=== PATIENT | female | born 1935 | race Caucasian/White ===

== ENCOUNTER 2021-07-07 09:53 | Inpatient (IN) | payer MEDICARE, SELFPAY ==
--- NOTE | ~2021-07-07 | CT_ITS ---
EXAMINATION: CT CHEST WITHOUT CONTRAST CLINICAL INFORMATION: Fall. Right-sided rib pain. COMPARISON: None TECHNIQUE: Multidetector volumetric CT imaging of the chest was done. Axial MIP volume rendering provided. Sagittal and coronal reformatted images were obtained. This CT examination was performed using dose optimization techniques as appropriate, variously including the following: *Automated exposure control *Adjustment of mA and/or kV according to patient size (this includes techniques or standardized protocols for targeted exams where dose is matched to indication/reason for exam; i.e. extremities or head) *Use of iterative reconstruction technique DLP: 185 mGy-cm FINDINGS: LUNGS: There are multiple small bilateral pulmonary nodules or micronodules, right greater than left. Largest pulmonary nodule is a 4 mm heterogeneous or semisolid right upper lobe nodule axial image 133 series 5. There are clustered peribronchial nodules and bronchial wall thickening in the medial segment of the right middle lobe suggestive of tree-in-bud appearance or airways disease. There is subsegmental atelectasis at both lung bases. MEDIASTINUM: There is a 1 cm left thyroid nodule. No imaging follow-up needed. There is evidence of atherosclerotic disease. The thoracic aorta is upper normal in size. The heart does not appear enlarged. There is a trace pericardial effusion or pericardial thickening. There is coronary artery and aortic valve calcification. PLEURA: There is no pleural effusion. No pleural mass or thickening. There is no pneumothorax. AXILLA: No lymphadenopathy. UPPER ABDOMEN: There is free intraperitoneal air. There may be increased soft tissue or fluid seen inferior to the left lobe of the liver on the most inferior images axial image 65 series 3. OSSEOUS STRUCTURES: There are degenerative changes of the spine. No fracture is seen. CT/CT chest wo con IMPRESSION: No evidence for acute disease in the chest. Free air. Small amount of fluid or abnormal soft tissue inferior to the left lobe of the liver. Abdominal and pelvic CT is pending. Small pulmonary nodules or micronodules. Coronary artery and aortic valve calcification. Upper normal-sized thoracic aorta. Findings were communicated to Dr. Alicea by telephone on 07/07/2021 at 11:00 AM.
--- NOTE | ~2021-07-07 | FL_ITS ---
EXAMINATION: XR GI SERIES CLINICAL INFORMATION: Free air. Possible perforated ulcer. COMPARISON: Previous CT of the chest, abdomen and pelvis from earlier the same day TECHNIQUE: The patient was administered oral Gastrografin and single contrast upper GI was performed with the patient upright, supine and in the SALAZAR position. FINDINGS: There is free intraperitoneal air. There is a small air collection seen adjacent to the distal stomach/antrum. No contrast extravasation/leak is seen. There is no evidence of obstruction. FLUOROSCOPY TIME: 1.3 minutes DOSE AREA PRODUCT: 14 bergeron per centimeter squared. 19 saved fluoroscopic images and 3 overhead images. FL/FL upper GI series IMPRESSION: Free intraperitoneal air and small air collection adjacent to the distal stomach. No leak is seen. Findings were discussed with Dr. Lester in person on 07/07/2021 at 2:00 PM at the completion of the exam.
--- NOTE | ~2021-07-07 | CT_ITS ---
EXAMINATION: CT ABDOMEN AND PELVIS WITHOUT CONTRAST CLINICAL INFORMATION: COMPARISON: Chest CT from earlier today TECHNIQUE: Multidetector volumetric imaging was performed from the superior aspect of the liver through the pubic symphysis. Sagittal and coronal reformatted images were obtained on the technologist's workstation. This CT examination was performed using dose optimization techniques as appropriate, variously including the following: *Automated exposure control *Adjustment of mA and/or kV according to patient size (this includes techniques or standardized protocols for targeted exams where dose is matched to indication/reason for exam; i.e. extremities or head) *Use of iterative reconstruction technique DLP: 400 mGy-cm FINDINGS: LUNG BASES: The visualized lung bases are unremarkable. LIVER, GALLBLADDER, AND BILIARY TREE: The liver is normal in size, shape, and attenuation. No focal hepatic lesion or biliary ductal dilatation is present. The gallbladder is unremarkable with no evidence of radiopaque gallstones, gallbladder wall thickening, or obvious pericholecystic inflammatory changes. PANCREAS: Unremarkable. SPLEEN: Unremarkable. ADRENAL GLANDS: Unremarkable. KIDNEYS AND URETERS: The kidneys are normal in size, shape, and attenuation. No hydronephrosis, hydroureter, or calculi seen. No perinephric stranding. BLADDER: Unremarkable. GASTROINTESTINAL TRACT: There is free air seen under both diaphragms and in the upper anterior abdomen.. There is a small amount of ascites seen inferior to the left lobe of the liver. There are fluid-filled loops of small bowel. The cecum and proximal right colon is slightly distended and fluid-filled as well. There is stool in the colon. There is question of air in the wall of the anterior distal stomach/gastric antrum axial image 24 series 3. The wall of the distal stomach is slightly dilated. This is adjacent to the small fluid collection inferior to the left lobe of the liver and may be the site of perforation. The appendix is not seen. ABDOMINAL WALL: No significant hernia is appreciated. LYMPH NODES: Normal. VASCULAR: There is evidence of atherosclerotic disease PELVIC VISCERA: There is a calcification in the uterus probably representing a small calcified fibroid. No pelvic mass is OSSEOUS STRUCTURES: There are degenerative changes of the spine. There is mild anterior subluxation of L4 with respect L5 probably related to facet arthritis. There is arthritis at both hip joints. No fracture is seen. CT/CT abdomen pelvis wo con IMPRESSION: Free air. Small amount of fluid inferior to the left lobe of the liver. Question wall thickening and small amount of air in the distal stomach/antrum. This is adjacent to the fluid inferior to the left lobe of the liver and questionable for site of perforation. Fluid-filled loops of small and proximal large bowel probably representing an ileus. Stool throughout the colon. Degenerative changes of the spine. No fracture seen. Findings will be communicated by the [place] work flow parole director Susan Pearce.
--- NOTE | ~2021-07-07 | CT_ITS ---
EXAMINATION: CT abdomen pelvis w con CLINICAL INFORMATION: Reason for Exam reassess free air, presumed perforated ulcer, ? abscess COMPARISON: Prior CT 07/07/2021 TECHNIQUE: Multidetector volumetric imaging was performed from the superior aspect of the liver through the pubic symphysis 85 mL Omnipaque 350 injected Sagittal and coronal reformatted images were obtained on the technologist's workstation. This CT examination was performed using dose optimization techniques as appropriate, variously including the following: *Automated exposure control *Adjustment of mA and/or kV according to patient size (this includes techniques or standardized protocols for targeted exams where dose is matched to indication/reason for exam; i.e. extremities or head) *Use of iterative reconstruction technique DLP: 461 mGy-cm FINDINGS: LOWER THORAX: Small right pleural effusion and compression atelectasis at right lung base. HEPATOBILIARY: There is intra-articular extrahepatic biliary dilatation. Common bile duct measure up to 1 cm. GALLBLADDER: Not well visualized might be contracted or been removed. SPLEEN: Spleen is normal in size. PANCREAS: No focal mass or ductal dilatation. STOMACH AND GASTROINTESTINAL TRACT: Stomach is grossly unremarkable. There is contrast in the colon from prior upper GI study. No CT evidence of appendicitis. ADRENALS: No adrenal nodules. KIDNEYS/URETERS: No hydronephrosis, stones or solid mass lesions. URINARY BLADDER: Urinary bladder is distended unopacified. PELVIC VISCERA: Unremarkable PERITONEUM: There is a collection of fluid in the right upper quadrant with air abutting the left lobe of the liver measures about 4.7 x 2.1 cm there is a trace amount of free fluid along the gutters. Cannot rule out the possibility of evolving abscess, this is of uncertain origin. Sullivan image. This has increased in size. There are free air in the abdomen, raising concern for bowel perforation. LYMPH NODES: No lymphadenopathy. VASCULAR:There are heavy vascular calcifications. No aneurysm. BONES, ABDOMINAL WALL AND SOFT TISSUES: Age-appropriate changes of the spine and skeletal system, no destructive osteolytic or osteosclerotic bone lesion found CT/CT abdomen pelvis w con IMPRESSION: 1. Redemonstration of free air in the abdomen, as previously suggested this is concerning for perforated bowel. 2. Loculated fluid collection right upper quadrant abutting the left lobe of the liver slightly more prominent on today's exam concerning for developing abscess. Refer image 13 series 5. 3. Dilated intra and extrahepatic bile ducts, gallbladder not visualized might be contracted. 4. Small right pleural effusion with adjacent atelectasis at right lung base. (Referring physician staff is being called, to be alerted of the above findings and recommendations.) Ronnie Pagan
--- NOTE | ~2021-07-07 | CT_ITS ---
PROCEDURE: CT GUIDED ABSCESS DRAINAGE CLINICAL INFORMATION: Right upper quadrant abscess. Question perforated ulcer. COMPARISON: Previous CT scan most recent 07/09/2021 TECHNIQUE: Procedure and risks and benefits including bleeding, infection and injury to the adjacent organs or bowel was discussed with the patient and informed consent was obtained. The patient was positioned in the supine position. Limited axial images through the upper abdomen were obtained. The right upper quadrant was prepped and draped in the usual sterile fashion. The skin and soft tissues were anesthetized with 1% lidocaine plain. Using CT guidance and a 4 [place] Yueh needle, access to the fluid collection adjacent to the left lobe of the liver was obtained. Over an 035 guidewire, a 6.3 [place]an pigtail drainage catheter was positioned in the collection. Approximately 7 mL of clear slightly serosanguineous fluid was aspirated. Specimen was sent for Gram stain and culture. Patient received Versed 1.5 mg and fentanyl 50 mcg intravenously during the procedure. Conscious sedation was provided by a registered nurse under my direct supervision. Total sedation time was [address] examination was performed using dose optimization techniques as appropriate, variously including the following: *Automated exposure control *Adjustment of mA and/or kV according to patient size (this includes techniques or standardized protocols for targeted exams where dose is matched to indication/reason for exam; i.e. extremities or head) *Use of iterative reconstruction technique DLP: 153 mGy-cm FINDINGS: There is a small right pleural effusion and right lower lobe atelectasis. There is free air. There is a fluid collection just deep to the right upper anterior abdominal wall adjacent to the left lobe liver the small amount of air. This measures maximum 3 x 5 cm in AP and transverse dimension. There is air adjacent to the anterior distal stomach questionable for source of perforation. No extravasated oral contrast is seen. Findings are similar yesterday's exam. Images following drain placement demonstrate drainage catheter in the collection which is minimally decreased in size. CT/CT guided drainage IMPRESSION: CT-guided 6.3 Ug[place]an right upper quadrant drainage catheter placement.
[2021-07-07 10:01] VITALS: BP 117/66; PULSE 102; RESP 16; TEMP 36.3; O2SAT 97; BMI 20.5
--- NOTE | 2021-07-07 10:24 | ED.FALL ---
HPI - Fall General Chief Complaint: Fall Stated Complaint: fall - rib pain radiating to abd Time Seen by Provider: 07/07/21 10:10 Source: patient Mode of arrival: ambulatory Limitations: no limitations History of Present Illness complaint: fall Onset (ago): day(s) (5) Fall from: chair (while standing) Fall witnessed: no Place fall occurred: home Loss of consciousness: none Prolonged down time: no Symptoms prior to fall: none Context: tripped/slipped Location of injury: chest (R side ) Location of injury - extremities: right: thigh Quality: dull and aching Associated symptoms (after fall): other (worsening R rib pain , hematoma on R thigh is improving) Related Data Home Medications Medication Instructions Recorded Confirmed bromfenac 0.09 % eye drops 1 drp OPHTHALMIC-RIGHT DAILY 06/01/21 simvastatin 10 mg tablet 10 mg PO BEDTIME 06/01/21 valsartan 320 mg tablet 320 mg PO DAILY 06/01/21 valsartan 320 1 tab PO DAILY 06/01/21 mg-hydrochlorothiazide 12.5 mg tablet Previous Rx's Medication Instructions Recorded nystatin 100,000 unit/mL oral 2 ml PO QID 7 Days #56 ml 06/01/21 suspension Allergies Allergy/AdvReac Type Severity Reaction Status Date / Time No Known Allergies Allergy Verified 06/09/21 11:29 Review of Systems Review of Systems: Constitutional : No Weight loss, No Fever, No Chills ENT/Mouth : No sore throat, No Rhinorrhea Eyes: No Eye Pain, No Swelling Cardiovascular : pos Chest Pain, no SOB, no Dyspnea on Exertion, No Orthopnea, No Edema, No Palpitations Respiratory : No Cough, No Sputum Gastrointestinal : no Nausea, No Vomiting, No Diarrhea, pos abdominal Pain, No Hematochezia, No Melena Genitourinary : No Dysuria, No Urinary Frequency Musculoskeletal : No joint pain, No Myalgias, No Joint Swelling Skin : No Skin Lesions, No rash Neuro : No Weakness, No Numbness, No Dizziness, No Headache Psych : No Anxiety/Panic, No Depression Heme/Lymph: No Bruising, No Lymphadenopathy Endocrine : No Polyuria, No Polydipsia All other systems reviewed and are negative PMFSH Past Medical History Attestation statement: The following information was validated with the patient. Medical History High cholesterol HTN (hypertension) Social History Social History (Updated 07/07/21 @ 10:44 by Xin Alicea DO) Patient Tobacco Use Status: Never used Tobacco Advance Directives: No Advance Directives Information Provided: No Physical Exam Vital Signs: Vital Signs: Last Vital Signs Temp 97.3 F 07/07/21 10:01 Pulse 102 H 07/07/21 10:01 Resp 16 07/07/21 10:01 BP 117/66 07/07/21 10:01 Pulse Ox 97 07/07/21 10:01 Body Mass Index 20.5 Appearance: Alert. Oriented X3. No acute distress. Eyes: Pupils equal, round and reactive to light. ENT: Pharynx normal. Neck: Normal inspection. Neck supple. CVS: Normal heart rate and rhythm. Pulses normal. Chest: ttp along R anterior ribs Respiratory: No respiratory distress. Breath sounds normal. Abdomen: Soft and mild RUQ pain no rebound or guarding Skin: Skin warm and dry. Normal skin color. Normal skin turgor. Extremities: No lower extremity edema. No calf ttp . R thigh resolving small hematoma to R hip full ROM Of R hip Neuro: Oriented X 3. No motor deficit. No sensory deficit. Course Course Course Narrative: H/H stable, on repeat exam no rebound or guarding noted, denies any new procedures just states the recent fall labs, will scan with IV contrast if needed, type and screen, COVID swab ordered, patient updated with findings call from Radiology [id number] - gastric ulcer ?perforation free air noted no liver lac noted message sent to Dr. Lester [id number] lab, cultures, IV protonix ordered, anticipate zosyn pending input zosyn ordered, Dr. Lester to admit upper GI series ordered MDM - Fall MDM Narrative Medical decision making narrative: 86 yo female with hx of HLD, HTN mechanical fall on Saturday at home did not hit head or injure neck - not on AC therapy. Complains of worsening R chest and RUQ pain since fall - will obtain labs and CT scan of chest/abdomen. R thigh is healing and she has full ROM of R hip doubt fracture. Dispo per results and findings. Lab Data Result diagrams: 07/07/21 10:56 07/07/21 10:56 Labs: Lab Results 07/07/21 07/07/21 07/07/21 Range/Units 10:56 10:56 11:16 WBC 10.1 (4.8-10.8) X10*3/uL RBC 4.19 L (4.20-5.50) X10*6/uL Hgb 12.7 (12.0-16.0) g/dl Hct 37.9 (37-47) % MCV 90.5 (80-98) fL MCH 30.3 (27.0-33.0) pg MCHC 33.5 (31.0-35.0) g/dl RDW 13.9 (11.0-16.0) % Plt Count 288 (160-400) X10*3/uL MPV 8.6 L (9.4-12.3) fL Immature Gran % (Auto) 0.5 H (0.0-0.4) % Neut % (Auto) 89.0 H (45-73) % Lymph % (Auto) 5.0 L (20-40) % Florence % (Auto) 4.0 (2-11) % Eos % (Auto) 1.2 (0-4) % Baso % (Auto) 0.3 (0-2) % Lymph # (Auto) 0.5 L (1.2-4.9) X10*3/uL Florence # (Auto) 0.4 (0.1-1.2) X10*3/uL Eos # (Auto) 0.1 (0.0-0.4) X10*3/uL Baso # (Auto) 0.0 (0.0-0.2) X10*3/uL Abs Immat Gran (auto) 0.05 H (0.00-0.03) X10*3/uL Absolute Neuts (auto) 9.0 H (2.0-8.3) X10*3/uL Absolute Nucleated RBC 0.000 (0.0-0.012) X10*3/uL Nucleated RBC % (auto) 0.0 (0.0-0.2) /100WBC PT 13.1 H (9.9-13.0) SEC INR 1.2 H (0.9-1.1) APTT 30.8 (24.1-38.0) SEC Sodium 134 L (135-145) mmol/L Potassium 4.0 (3.3-5.1) mmol/L Chloride 102 (96-108) mmol/L Carbon Dioxide 22 (22-29) mmol/L Anion Gap 14 (12-20) BUN 23 H (9-16) mg/dL Creatinine 1.16 (0.5-1.4) mg/dL Estim Creat Clear Calc 30.9 Estimated GFR 45 Random Glucose 114 (60-115) mg/dL Lactic Acid (0.5-2.0) mmol/L Calcium 9.4 (8.4-10.2) mg/dL Total Bilirubin 1.3 H (0.0-1.0) mg/dL Direct Bilirubin 0.6 H (0.0-0.5) mg/dL AST 12 (5-31) U/L ALT 15 (0-31) U/L Alkaline Phosphatase 69 (39-117) U/L Total Protein 6.1 L (6.5-8.0) g/dL Albumin 3.7 (3.5-5.0) g/dL Lipase 11 (8-78) U/L COVID-19 ([facility]) (Negative) COVID-19 Clin Com Blood Type 07/07/21 07/07/21 07/07/21 Range/Units 11:16 11:16 11:40 WBC (4.8-10.8) X10*3/uL RBC (4.20-5.50) X10*6/uL Hgb (12.0-16.0) g/dl Hct (37-47) % MCV (80-98) fL MCH (27.0-33.0) pg MCHC (31.0-35.0) g/dl RDW (11.0-16.0) % Plt Count (160-400) X10*3/uL MPV (9.4-12.3) fL Immature Gran % (Auto) (0.0-0.4) % Neut % (Auto) (45-73) % Lymph % (Auto) (20-40) % Florence % (Auto) (2-11) % Eos % (Auto) (0-4) % Baso % (Auto) (0-2) % Lymph # (Auto) (1.2-4.9) X10*3/uL Florence # (Auto) (0.1-1.2) X10*3/uL Eos # (Auto) (0.0-0.4) X10*3/uL Baso # (Auto) (0.0-0.2) X10*3/uL Abs Immat Gran (auto) (0.00-0.03) X10*3/uL Absolute Neuts (auto) (2.0-8.3) X10*3/uL Absolute Nucleated RBC (0.0-0.012) X10*3/uL Nucleated RBC % (auto) (0.0-0.2) /100WBC PT (9.9-13.0) SEC INR (0.9-1.1) APTT (24.1-38.0) SEC Sodium (135-145) mmol/L Potassium (3.3-5.1) mmol/L Chloride (96-108) mmol/L Carbon Dioxide (22-29) mmol/L Anion Gap (12-20) BUN (9-16) mg/dL Creatinine (0.5-1.4) mg/dL Estim Creat Clear Calc Estimated GFR Random Glucose (60-115) mg/dL Lactic Acid 0.9 (0.5-2.0) mmol/L Calcium (8.4-10.2) mg/dL Total Bilirubin (0.0-1.0) mg/dL Direct Bilirubin (0.0-0.5) mg/dL AST (5-31) U/L ALT (0-31) U/L Alkaline Phosphatase (39-117) U/L Total Protein (6.5-8.0) g/dL Albumin (3.5-5.0) g/dL Lipase (8-78) U/L COVID-19 ([facility]) Negative (Negative) COVID-19 Clin Com See Note Blood Type O Positive Discharge Plan Discharge Clinical Impression: Perforated gastric ulcer Patient Disposition: Admitted As Inpatient Prescriptions: No Action valsartan-hydrochlorothiazide 320-12.5 mg tablet 1 tab PO DAILY RF: 0 simvastatin 10 mg tablet 10 mg PO BEDTIME RF: 0 valsartan 320 mg tablet 320 mg PO DAILY RF: 0 bromfenac 0.09 % drops 1 drp ophthalmic-Right DAILY RF: 0 nystatin 100,000 unit/mL suspension 2 ml PO QID 7 Days Qty: 56 RF: 0
--- NOTE | 2021-07-07 10:45 | PC.NURSE ---
pt alert and oriented, vss. Pt states she fell on Saturday and on Saturday she started having RUQ and Right sided chest pain. She denies LOC/hitting her head. Pt denies dizziness/headache/sob/nausea/vomiting/diarrhea. no other symptoms reported. She states the pain has gotten worse since the day of the fall and is concerned. IV placed in her right forearm, labs drawn. pt in no apparent distress.
[2021-07-07 10:59] LABS: MANUAL DIFF FLAG NO
[2021-07-07 11:07] LABS: Basophils Percent Auto 0.3 % (0-2); Eosinophils Absolute Auto 0.1 X10*3/uL (0.0-0.4); Eosinophils Percent Auto 1.2 % (0-4); Hematocrit 37.9 % (37-47); Hemoglobin 12.7 g/dl (12.0-16.0); Imm Gran Abs Auto 0.05 X10*3/uL (0.00-0.03); Imm Gran Pct Auto 0.5 % (0.0-0.4); Lymphocytes Absolute Auto 0.5 X10*3/uL (1.2-4.9); Mean Corpuscular HGB Conc 33.5 g/dl (31.0-35.0); Mean Corpuscular Hemoglobin 30.3 pg (27.0-33.0); Mean Corpuscular Volume 90.5 fL (80-98); Mean Platelet Volume 8.6 fL (9.4-12.3); Monocytes Absolute Auto 0.4 X10*3/uL (0.1-1.2); Platelet Count 288 X10*3/uL (160-400); Red Blood Count 4.19 X10*6/uL (4.20-5.50); Red Cell Distribution Width 13.9 % (11.0-16.0); White Blood Count 10.1 X10*3/uL (4.8-10.8)
[2021-07-07 11:26] LABS: Alanine Aminotransferase 15 U/L (0-31); Albumin Level 3.7 g/dL (3.5-5.0); Alkaline Phosphatase 69 U/L (39-117); Anion Gap 14 (12-20); Aspartate Amino Transferase 12 U/L (5-31); Bilirubin Direct 0.6 mg/dL (0.0-0.5); Bilirubin Total 1.3 mg/dL (0.0-1.0); Blood Urea Nitrogen 23 mg/dL (9-16); Calcium 9.4 mg/dL (8.4-10.2); Carbon Dioxide 22 mmol/L (22-29); Chloride 102 mmol/L (96-108); Creatinine Clr Calc Pharmacy 30.9; Estimated Glomerular Filt Rate 45; Glucose Random 114 mg/dL (60-115); Lipase 11 U/L (8-78); Sodium 134 mmol/L (135-145); Total Protein 6.1 g/dL (6.5-8.0)
[2021-07-07 11:30] LABS: INTERNATIONAL NORM RATIO 1.2 (0.9-1.1); Prothrombin Time 13.1 SEC (9.9-13.0)
[2021-07-07 11:32] LABS: Partial Thromboplastin Time 30.8 SEC (24.1-38.0)
[2021-07-07 11:44] LABS: COVID-19 Test Negative (Negative); IDNOW Serial# 08D9AD1C
[2021-07-07] MEDS: Pantoprazole Sodium 40 MG/10 ML VIAL IVPUSH ×2 (11:44→18:12)
[2021-07-07 12:00] LABS: Lactic Acid 0.9 mmol/L (0.5-2.0)
--- NOTE | 2021-07-07 12:25 | P.HPGS_ITS ---
History of Present Illness History of Present Illness Date of Service: 07/07/21 Chief complaint: fall - rib pain radiating to abd Narrative: Justyna Browning is a 86 year old female who was feeling well until 2 nights ago. She was away on a trip and was standing in line to get supper when she experienced acute onset of severe epigastric pain that radiated to both subcostal areas. It was not associated with nausea vomiting fever or chills. The pain improved but has not resolved. She has experienced persistent right upper quadrant and right lower quadrant abdominal pain and tenderness. Appetite is diminished. She has been able to take fluids and some solids. She has not used any nonsteroidal medications or aspirin. She does not drink any significant amount of alcohol or smoke cigarettes. She does not have a history of abdominal pain or peptic ulcer disease. She had a normal bowel movement yesterday. When she was preparing to leave on her trip 4 days ago, she was reaching up to get something off of a high shelf and lost her balance. She fell and landed on her right hip area. She developed a bruise, but did not have significant pain and was able to get right back up and continue packing. When she developed the epigastric pain, she thought it likely was related to the fall that she had taken 2 days earlier. She returned home last night and this morning called her primary care office to arrange an urgent visit appointment. The nurse that the primary care office advised her that imaging studies likely would be needed and suggested coming to the emergency department. In the emergency department, CT scan of the chest, abdomen and pelvis was obtained. This demonstrated free intraperitoneal air and some free fluid, particularly around the proximal right colon. A site of possible perforation was identified in the distal stomach. White blood count is 10.1 with 89% neutrophils. BUN is 23 and creatinine 1.13. Sodium is slightly low at 134. Review of Systems Constitutional: Constitutional: Reports no additional constitutional complaints, Denies chills, Denies fever(s), Denies frequent falls, Denies headache(s), Reports poor appetite (Slightly diminished, predates current symptoms) and Reports weight loss (Mild, unable to quantify) Eyes: Eyes: Denies dry eyes and Reports requires corrective lenses ENT: Denies dizziness and Denies headache(s) Cardiovascular: Cardiovascular: Denies chest pain, Denies irregular heart rhythm, Denies palpitations and Denies dyspnea on exertion Respiratory: Respiratory: Denies cough, Denies dyspnea on exertion and Denies wheezing Gastrointestinal: Gastrointestinal: Reports as per HPI, Reports abdominal pain, Denies change in bowel habits, Denies heartburn and Denies nausea Genitourinary: Genitourinary: Denies urinary frequency, Denies dysuria and Denies pelvic pain Musculoskeletal: Musculoskeletal: Reports back pain and Reports arthralgias (Both knees) Integumentary/Breasts: Skin/Breast: Denies pruritus and Denies rash Neurologic: Denies dizziness, Denies frequent falls, Denies headache(s), Denies memory loss and Denies convulsions Psychiatric: Psychiatric: Denies memory loss Endocrine: Endocrine: Denies palpitations Hematologic/Lymphatic: Hematologic/Lymphatic: Denies easy bleeding and Reports other (No history of blood clots) Allergic/Immunologic: Allergic/Immunologic: Denies wheezing PMFSH Past Medical History Medical History (Updated 07/07/21 @ 12:42 by Aditi Lester MD) High cholesterol HTN (hypertension) Osteoarthritis of both knees Sciatica Functional capacity: independent ambulation Surgical History Surgical History (Updated 07/07/21 @ 12:42 by Aditi Lester MD) History of appendectomy History of back surgery History of cholecystectomy History of tonsillectomy Social History Social History Patient Tobacco Use Status: Never used Tobacco Advance Directives: No Advance Directives Information Provided: No Meds Allergies Allergy/AdvReac Type Severity Reaction Status Date / Time No Known Allergies Allergy Verified 06/09/21 11:29 Active Medications: Current Medications Piperacillin Sod/Tazobactam (Sod 3.375 gm/ Sodium Chloride) 50 mls @ 100 mls/hr IV ONCE ONE Stop: 07/07/21 12:36 Home Medications Medication Instructions Recorded Confirmed Last Taken Type bromfenac 0.09 % eye drops 1 drp OPHTHALMIC-RIGHT DAILY 06/01/21 Unknown History simvastatin 10 mg tablet 10 mg PO BEDTIME 06/01/21 Unknown History valsartan 320 mg tablet 320 mg PO DAILY 06/01/21 Unknown History valsartan 320 1 tab PO DAILY 06/01/21 Unknown History mg-hydrochlorothiazide 12.5 mg tablet Physical Exam Vital Signs: Vital Signs: Last Vital Signs Temp 97.3 F 07/07/21 10:01 Pulse 102 H 07/07/21 10:01 Resp 16 07/07/21 10:01 BP 117/66 07/07/21 10:01 Pulse Ox 97 07/07/21 10:01 Body Mass Index 20.5 Const: General: cooperative, healthy appearing and no acute distress Nutritional Appearance: thin Orientation/consciousness: patient oriented x3 HENMT: Head: Yes normocephalic and Yes atraumatic Eyes: General: appearance normal, both eyes and all related structures EOM: EOMs intact bilaterally Neck: Neck: Yes trachea midline and Yes supple Resp: Effort & Inspection: normal respiratory effort Auscultation: clear to auscultation bilaterally Cardio: Rate: regular rate Rhythm: regular rhythm Heart sounds: no murmurs GI: Other: Soft, nondistended, bowel sounds active, no organomegaly, well- healed right subcostal and right lower quadrant incisions. Moderate right lower quadrant tenderness on marked right upper quadrant tenderness with rebound Rectal Exam - Female: deferred Skin: Other: Normal color, warm and dry General skin exam: no rashes or lesions noted and ecchymosis (Region of right greater trochanter) Neuro: General: patient oriented x3 Psych: Mental Status: mental status grossly normal Affect: normal affect Thought process: Normal thought process present Results Results Labs: Short CBC 07/07/21 Range/Units 10:56 WBC 10.1 (4.8-10.8) X10*3/uL Hgb 12.7 (12.0-16.0) g/dl Hct 37.9 (37-47) % Plt Count 288 (160-400) X10*3/uL BMP 07/07/21 10:56 Sodium 134 L Potassium 4.0 Chloride 102 Carbon Dioxide 22 BUN 23 H Creatinine 1.16 Calcium 9.4 Liver Function 07/07/21 Range/Units 10:56 Total Bilirubin 1.3 H (0.0-1.0) mg/dL Direct Bilirubin 0.6 H (0.0-0.5) mg/dL AST 12 (5-31) U/L ALT 15 (0-31) U/L Alkaline Phosphatase 69 (39-117) U/L Albumin 3.7 (3.5-5.0) g/dL Abdomen CT scan report/results: report reviewed and image reviewed (With Dr. Graham) CT scan - chest: report reviewed and image reviewed Assessment and Plan (1) Perforated gastric ulcer: Qualifiers: Gastric ulcer chronicity: unspecified ulcer chronicity Qualified Code(s): K25.5 - Chronic or unspecified gastric ulcer with perforation Status: Acute 86-year-old female with perforated viscus, most likely perforated distal gastric/peptic ulcer. The perforation probably occurred 2 days ago based upon the reported timing of symptom onset. We discussed treatment options. I reviewed with her at that her delayed presentation is somewhat unusual. We discussed the likely diagnosis of perforated gastric/peptic ulcer, but I expla ined that another site of perforation is possible. We discussed that the typical treatment would be exploratory laparotomy with over-sewing of the ulcer and placement of omental patch and presuming that to the diagnosis of perforated ulcer is confirmed. The abdomen would be explored as needed to identify the source if an ulcer was not found. We reviewed risks of infection, bleeding, breakdown of the repair. We also discussed the option of non operative treatment if it appears that the perforation has sealed spontaneously. We discussed evaluation with Gastrografin upper GI. We discussed if no ongoing leakage is identified, a trial of antibiotic therapy and bowel rest can be undertaken. We discussed risks of abdominal abscess formation and recurrence of the perforation necessitating s urgery. We also discussed the risk of aspiration pneumonitis related to the use of water-soluble contrast material should the upper GI confirm perforation with ongoing leak with a short time between diagnosis and surgical treatment. Her preference is to proceed with non operative treatment if it appears to be a reasonable choice. We will proceed with upper GI with water-soluble contrast material. Further plans will be made once that study has been completed. Addendum: Gastrografin upper GI does not show any evidence of contrast leak. Possible site of ulceration identified, but cannot be diagnosed with certainty. Clinical history and imaging findings are most consistent with a perforated peptic ulcer with spontaneous sealing. I reviewed the findings with Dr. Graham and then with the patient. We again discussed treatment options. She prefers non operative treatment, and I agreed this is reasonable. She is aware that it may not be successful and that there is a risk of development of intra-abdominal abscess secondary to spillage of GI content and that it is possible that this could be successfully treated with antibiotics and percutaneous drainage as needed. She understands that surgery will be needed if non operative treatment is not successful. She will be admitted and kept NPO initially. She will be placed on IV Protonix, Zosyn and IV fluids. She remains stable, clear liquid diet will be initiated tomorrow and will be advanced as tolerated. CT scan will be repeated in 2-3 days to reassess for development of intra-abdominal abscess. VT prophylaxis will be with subcutaneous heparin. Will follow blood pressure, resume antihypertensives as needed. Quality Stroke Does the patient have a stroke diagnosis?: No VTE Prior VTE?: No VTE Risk Level:: Surgical - high VTE Device Contraindication: Treatment Not Indicated VTE Drug Contraindication: N/A - Med Ordered Procedures Date of Service Date of Service: 07/07/21
[2021-07-07] MEDS: Piperacillin Sodium/Tazobactam 3.375 GM in 0.9 % Sodium Chloride 50 ML IV ×3 (12:52→23:30)
[2021-07-07 17:19] VITALS: BP 175/76; PULSE 78; RESP 18; TEMP 36.8; O2SAT 97
[2021-07-07] MEDS: Dextrose 5 % and Lactated Ring 1,000 ML 80 ML IVCONT (17:43)
--- NOTE | 2021-07-07 18:10 | PHA.MEDREC ---
Pharmacy Consult ? Medication Reconciliation Pharmacy has completed the medication reconciliation. Spoke with patient in room 375. Patient reports only taking Valsartan/HCTZ, probiotic when needed, and vitamin d during winter months. patient weaned on simvastatin because she was getting muscle cramps.
[2021-07-07] MEDS: Heparin Sodium,Porcine 5,000 UNIT/ML VIAL 5000 UNIT SUBCUT (18:12)
[2021-07-07 18:54] VITALS: BP 140/65; PULSE 88; RESP 18; TEMP 36.8; O2SAT 98
[2021-07-07] MEDS: Morphine Sulfate 4 MG/ML CARTRIDGE 2 MG IVPUSH (22:59)
[2021-07-07 23:01] VITALS: BP 140/66; PULSE 84; RESP 20
[2021-07-08] VITALS: BP 165/72; PULSE 89; RESP 20; TEMP 36.6; O2SAT 98
[2021-07-08 04:00] VITALS: BP 156/70; PULSE 80; RESP 19; TEMP 36.5; O2SAT 95
[2021-07-08] MEDS: Piperacillin Sodium/Tazobactam 3.375 GM in 0.9 % Sodium Chloride 50 ML IV ×3 (05:18→17:57)
[2021-07-08] MEDS: Heparin Sodium,Porcine 5,000 UNIT/ML VIAL 5000 UNIT SUBCUT ×2 (05:19→17:52)
[2021-07-08] MEDS: Dextrose 5 % and Lactated Ring 1,000 ML 80 ML IVCONT (05:22)
[2021-07-08 06:07] LABS: Hematocrit 31.8 % (37-47); Hemoglobin 10.9 g/dl (12.0-16.0); Mean Corpuscular HGB Conc 34.3 g/dl (31.0-35.0); Mean Corpuscular Hemoglobin 30.9 pg (27.0-33.0); Mean Corpuscular Volume 90.1 fL (80-98); Mean Platelet Volume 8.7 fL (9.4-12.3); Platelet Count 237 X10*3/uL (160-400); Red Blood Count 3.53 X10*6/uL (4.20-5.50); Red Cell Distribution Width 14.1 % (11.0-16.0); White Blood Count 7.7 X10*3/uL (4.8-10.8)
[2021-07-08 06:44] LABS: Alanine Aminotransferase 48 U/L (0-31); Alkaline Phosphatase 129 U/L (39-117); Anion Gap 11 (12-20); Aspartate Amino Transferase 58 U/L (5-31); Bilirubin Direct 0.4 mg/dL (0.0-0.5); Bilirubin Total 0.4 mg/dL (0.0-1.0); Blood Urea Nitrogen 19 mg/dL (9-16); Calcium 8.6 mg/dL (8.4-10.2); Carbon Dioxide 26 mmol/L (22-29); Chloride 104 mmol/L (96-108); Creatinine Clr Calc Pharmacy 36.6; Estimated Glomerular Filt Rate 54; Glucose Fasting 125 mg/dL (60-99); Potassium 3.7 mmol/L (3.3-5.1); Sodium 137 mmol/L (135-145); Total Protein 5.1 g/dL (6.5-8.0)
[2021-07-08 07:50] VITALS: BP 156/70; PULSE 81; RESP 20; TEMP 37; O2SAT 96
[2021-07-08] MEDS: Pantoprazole Sodium 40 MG/10 ML VIAL IVPUSH (09:25)
[2021-07-08] MEDS: hydroCHLOROthiazide 12.5 MG TABLET PO (09:25)
[2021-07-08] MEDS: Valsartan 320 MG TABLET PO (09:54)
[2021-07-08 11:56] VITALS: BP 161/72; PULSE 88; RESP 18; TEMP 36.4; O2SAT 98
[2021-07-08] MEDS: Pantoprazole Sodium 80 MG in 0.9 % Sodium Chloride 80 ML 10 MG IV (15:10)
[2021-07-08 15:50] VITALS: BP 171/74; PULSE 84; RESP 19; TEMP 36.9; O2SAT 99
--- NOTE | 2021-07-08 15:51 | MHC.CM.PN ---
CM MET WITH PT WHO REPORTS SHE HAS BEEN COMPLETELY INDEPENDENT [employer]. PT REPORTS SHE HAS NOT NEEDED ANY DME OR IN HOME SERVICES PT CONFIRMS HER PCP IS EMILE CLEMENTS BUT REPORTS SHE HAS NOT SEEN HER YET PT REPORTS SHE HAS A HCP NAMING HER TWO DAUGHTERS, KEVEN AND WILBERT, HER AGENTS. IMM DELIVERED PT HOPES TO [facility] WITH NO SERVICES ALTHOUGH SHE IS OPEN TO [facility] IF NECESSARY FAMILY TO TRANSPORT
--- NOTE | 2021-07-08 16:54 | PM.EVENT ---
Event Note Date of Service: 07/08/21 Event Note: GI Consult-Hx via patient, daughter, and EMR. Full note dictated. Imp: 86 yo female without prior GI history nor GI symptoms presenting with acute abdominal pain and probable perforation of a gastric ulcer based on imaging study. A F/U gastrograffin UGI was negative for any extravasation. Based on that and her good good clinical appearance the plan is for conservative medical management for the time being. She has no risk factors for PUD. She presently appears well and her abdominal exam is fairly benign other than right-sided tenderness. There is no mass, distention, nor rebound. She has good BS and has had a few BM's since admission. Rec: Continue IV PPI constant infusion. Check H.pylori serology. If surgery is avoided I would then recommend an EGD as an outpatient in 1-2 months. I shall leave the advancement of her diet and plans for further imaging and/or surgical intervention up to the surgical service. D/W patient and her daughter in detail. They are comfortable with this plan. Thanks.
[2021-07-08 19:02] VITALS: BP 174/79; PULSE 74; RESP 18; TEMP 36.6; O2SAT 96
[2021-07-08] MEDS: Morphine Sulfate 4 MG/ML CARTRIDGE 2 MG IVPUSH (19:55)
[2021-07-08] MEDS: Acetaminophen 325 MG TABLET 650 MG PO (23:55)
[2021-07-09] VITALS (7 sets, daily range): BP systolic 152–186; BP diastolic 69–81; PULSE 77–85; RESP 17–20; TEMP 36.2–37; O2SAT 96–99
[2021-07-09] MEDS: Piperacillin Sodium/Tazobactam 3.375 GM in 0.9 % Sodium Chloride 50 ML IV ×4 (00:47→17:28)
[2021-07-09] MEDS: Pantoprazole Sodium 80 MG in 0.9 % Sodium Chloride 80 ML 10 MG IV ×3 (01:30→17:30)
[2021-07-09] MEDS: Heparin Sodium,Porcine 5,000 UNIT/ML VIAL 5000 UNIT SUBCUT ×2 (05:47→17:29)
[2021-07-09 05:56] LABS: MANUAL DIFF FLAG NO
[2021-07-09 06:01] LABS: Basophils Percent Auto 0.4 % (0-2); Eosinophils Absolute Auto 0.2 X10*3/uL (0.0-0.4); Eosinophils Percent Auto 5.1 % (0-4); Hematocrit 30.8 % (37-47); Hemoglobin 10.5 g/dl (12.0-16.0); Imm Gran Abs Auto 0.02 X10*3/uL (0.00-0.03); Imm Gran Pct Auto 0.4 % (0.0-0.4); Lymphocytes Absolute Auto 0.7 X10*3/uL (1.2-4.9); Mean Corpuscular HGB Conc 34.1 g/dl (31.0-35.0); Mean Corpuscular Hemoglobin 30.6 pg (27.0-33.0); Mean Corpuscular Volume 89.8 fL (80-98); Mean Platelet Volume 8.7 fL (9.4-12.3); Monocytes Absolute Auto 0.3 X10*3/uL (0.1-1.2); Monocytes Percent Auto 5.9 % (2-11); Neutrophils Absolute Auto 3.5 X10*3/uL (2.0-8.3); Neutrophils Percent Auto 74.2 % (45-73); Platelet Count 223 X10*3/uL (160-400); Red Blood Count 3.43 X10*6/uL (4.20-5.50); Red Cell Distribution Width 13.8 % (11.0-16.0); White Blood Count 4.7 X10*3/uL (4.8-10.8)
--- NOTE | 2021-07-09 06:02 | PC.NURSE ---
Patient states she is feeling weaker and requested to ambulate yesterday but staff did not return.Patient asking to make sure she is helped to ambulate.
[2021-07-09] MEDS: Valsartan 320 MG TABLET PO (08:36)
[2021-07-09] MEDS: hydroCHLOROthiazide 12.5 MG TABLET PO (08:36)
[2021-07-09] MEDS: iohexoL 350 MG/ML 100 ML INFUS..BTL IV (12:09)
--- NOTE | 2021-07-09 12:12 | PM.PNGS ---
Subjective Subjective Date of Service: 07/09/21 Interval history: Was up ambulating without difficulty earlier. She reports ongoing difficulty with movement associated right subcostal pain, perhaps somewhat improved from previous. Tolerating clear liquid diet. Physical Exam Vital Signs: Vital Signs: Last Vital Signs Temp 98.6 F 07/09/21 07:37 Pulse 78 07/09/21 07:37 Resp 20 07/09/21 07:37 BP 164/75 H 07/09/21 07:37 Pulse Ox 96 07/09/21 07:37 Body Mass Index 20.5 Laboratory Results - last 24 hr 07/09/21 05:47 WBC 4.7 L RBC 3.43 L Hgb 10.5 L Hct 30.8 L MCV 89.8 MCH 30.6 MCHC 34.1 RDW 13.8 Plt Count 223 MPV 8.7 L Immature Gran % (A uto) 0.4 Neut % (Auto) 74.2 H Lymph % (Auto) 14.0 L [place] % (Auto) 5.9 Eos % (Auto) 5.1 H Baso % (Auto) 0.4 Lymph # (Auto) 0.7 L [place] # (Auto) 0.3 Eos # (Auto) 0.2 Baso # (Auto) 0.0 Abs Immat Gran (au to) 0.02 Absolute Neuts (au to) 3.5 Absolute Nucleated RBC 0.000 Nucleated RBC % (a uto) 0.0 Const: General: cooperative, no acute distress and alert Resp: Effort & Inspection: normal respiratory effort Auscultation: clear to auscultation bilaterally Cardio: Rate: regular rate Rhythm: regular rhythm Skin: Other: Normal color, warm and dry Procedures Date of Service Date of Service: 07/09/21 Progress Note: A&P Assessment and plan (1) Perforated gastric ulcer: Status: Acute Assessment and Plan: She appears stable and abdominal tenderness is improving gradually. She has significant persistent right upper quadrant tenderness in the region of the presumed perforation. Will repeat CT scan of the abdomen and pelvis today and will add IV contrast. If no evidence of recurrent leak, will advance to solid diet later today. Continue Zosyn, IV Protonix. (2) HTN (hypertension): Status: Acute Assessment and Plan: Chronic. Blood pressure has been somewhat elevated. May be related to acute illness and associated pain. Will continue to follow for now. Fall Risk Details Current Medications: Current Medications Acetaminophen (Acetaminophen 325 Mg Tablet) 650 mg PO Q6H PRN PRN Reason: Pain, Mild (Pain Scale 1-3) Last Admin: 07/08/21 23:55 Dose: 650 mg Documented by: Heparin Sodium (Porcine) (Heparin Sodium,Porcine 5,000 Unit/Ml Vial) 5,000 unit SUBCUT Q12H [facility] Last Admin: 07/09/21 05:47 Dose: 5,000 unit Documented by: Hydrochlorothiazide (Hydrochlorothiazide 12.5 Mg Tablet) 12.5 mg PO DAILY [facility]; Protocol Last Admin: 07/09/21 08:36 Dose: 12.5 mg Documented by: Dextrose/Lactated Ringer's (D5lr) 1,000 mls @ 80 mls/hr IVCONT .[id number] [facility] Last Admin: 07/09/21 07:29 Dose: Not Given Documented by: Piperacillin Sod/Tazobactam (Sod 3.375 gm/ Sodium Chloride) 50 mls @ 100 mls/hr IV Q6H [facility] Last Infusion: 07/09/21 06:38 Dose: Infused Documented by: Pantoprazole Sodium 80 mg/ (Sodium Chloride) 100 mls @ 10 mls/hr IV .Q10H [facility] Last Admin: 07/09/21 08:36 Dose: 8 mg/hr, 10 mls/hr Documented by: Morphine Sulfate (Morphine Sulfate 4 Mg/Ml Cartridge) 2 mg IVPUSH Q3H PRN; Protocol PRN Reason: Pain, severe Last Admin: 07/08/21 19:55 Dose: 2 mg Documented by: Ondansetron HCl (Ondansetron Hcl 4 Mg/2 Ml Vial) 4 mg IVPUSH Q8H PRN PRN Reason: Nausea Pharmacy Consult (Consult Rx Perform Med Rec) 1 each MISCELLANE ONCE PRN PRN Reason: Consult order Valsartan (Valsartan 320 Mg Tablet) 320 mg PO DAILY [facility]; Protocol Last Admin: 07/09/21 08:36 Dose: 320 mg Documented by: Time Spent With Patient Time: Total time spent is greater than 50% in coordination of care (as documented) at patient's floor/unit and/or counseling patient: Time with patient: less than 15 minutes Quality Stroke Does the patient have a stroke diagnosis?: No VTE Prior VTE?: No VTE Risk Level:: Surgical - high VTE Device Contraindication: Treatment Not Indicated VTE Drug Contraindication: N/A - Med Ordered
[2021-07-09] MEDS: Dextrose 5 % and Lactated Ring 1,000 ML 80 ML IVCONT (12:19)
[2021-07-09] MEDS: Acetaminophen 325 MG TABLET 650 MG PO (12:29)
--- NOTE | 2021-07-09 12:59 | P.CONIM_ITS ---
History of Present Illness Data of Consult Service Date: 07/09/21 Primary Care Provider: Tyra Ramos NP HPI Reason for consult: hypertension 86F who was admitted to the hospital 07/07/2021 for perforated gastric ulcer has been having persistently elevated blood pressures. Two days prior to presentation patient felt sudden onset right upper quadrant abdominal pain. Her pain improved but was persistent and was associated with decreased appetite and tenderness, therefore she came to the ED. in ED CT scan showed free intraperitoneal air some free fluid with a site of possible perforation in the distal stomach. She was treated conservatively with IV fluids and Protonix and antibiotics. Systolic blood pressures have been in the 170s, and most recently 186/81. Normally patient takes hydrochlorothiazide 12.5 - valsartan 320mg daily. She reports that her blood pressure is normally well controlled with systolic blood pressures in the 130s to 140. Review of Systems Review of Systems: Constitutional: Denies fever, denies Chills Eyes: denies blurry vision ENT: denies sore throat CVS: denies chest pain Respiratory: Denies dyspnea GI: abdominal pain : denies dysuria MSK: denies neck pain Skin: denies rash Neuro: denies specific motor weakness Psych: denies suicidal ideation Endocrine: denies heat/cold intolerance Hematologic: denies easy bleeding Allergy: denies hives [facility] Medical History High cholesterol HTN (hypertension) Osteoarthritis of both knees Sciatica Functional capacity: independent ambulation Family History Mother HTN (hypertension) Father Lymphoma Sister Breast cancer Brother Diabetes mellitus Pertinent family history: see above Surgical History History of appendectomy History of back surgery History of cholecystectomy History of tonsillectomy Social History Household Members: None Housing: Condominium Do you presently have visiting nurse or other home services: No Patient Tobacco Use Status: Never used Tobacco Use of substances other than those prescribed or required for medical reasons: No Currently Displaying Signs/Symptoms of Drug Intoxication Withdrawal: No Have you been hit, kicked, punched, or otherwise hurt by someone within the past year? If so, by whom?: No Do you feel safe in your current relationship?: Yes Is there a partner from a previous relationship who is making you feel unsafe now?: No Are you made to feel afraid or neglected: No [employer] Healthcare Practices: quaker Advance Directives: No Advance Directives Information Provided: No Do you have thoughts of harming others: None Do you have a plan to hurt others: No Plan Recently lost weight without trying: No Nutrition Risks: No Nutritional Risk Patient : No : No Poor oral hygiene: No service: No Current occupational status: [employer] Allergies Allergy/AdvReac Type Severity Reaction Status Date / Time No Known Allergies Allergy Verified 06/09/21 11:29 Active Medications: Current Medications Acetaminophen (Acetaminophen 325 Mg Tablet) 650 mg PO Q6H PRN PRN Reason: Pain, Mild (Pain Scale 1-3) Last Admin: 07/09/21 12:29 Dose: 650 mg Documented by: Heparin Sodium (Porcine) (Heparin Sodium,Porcine 5,000 Unit/Ml Vial) 5,000 unit SUBCUT Q12H [facility] Last Admin: 07/09/21 05:47 Dose: 5,000 unit Documented by: Hydrochlorothiazide (Hydrochlorothiazide 12.5 Mg Tablet) 12.5 mg PO DAILY [facility]; Protocol Last Admin: 07/09/21 08:36 Dose: 12.5 mg Documented by: Dextrose/Lactated Ringer's (D5lr) 1,000 mls @ 80 mls/hr IVCONT .[id number] [facility] Last Admin: 07/09/21 12:19 Dose: 80 mls/hr Documented by: Piperacillin Sod/Tazobactam (Sod 3.375 gm/ Sodium Chloride) 50 mls @ 100 mls/hr IV Q6H [facility] Last Infusion: 07/09/21 12:57 Dose: Infused Documented by: Pantoprazole Sodium 80 mg/ (Sodium Chloride) 100 mls @ 10 mls/hr IV .Q10H [facility] Last Admin: 07/09/21 08:36 Dose: 8 mg/hr, 10 mls/hr Documented by: Morphine Sulfate (Morphine Sulfate 4 Mg/Ml Cartridge) 2 mg IVPUSH Q3H PRN; Protocol PRN Reason: Pain, severe Last Admin: 07/08/21 19:55 Dose: 2 mg Documented by: Ondansetron HCl (Ondansetron Hcl 4 Mg/2 Ml Vial) 4 mg IVPUSH Q8H PRN PRN Reason: Nausea Pharmacy Consult (Consult Rx Perform Med Rec) 1 each MISCELLANE ONCE PRN PRN Reason: Consult order Valsartan (Valsartan 320 Mg Tablet) 320 mg PO DAILY [facility]; Protocol Last Admin: 07/09/21 08:36 Dose: 320 mg Documented by: Home Medications Medication Instructions Recorded Confirmed Last Taken Type cholecalciferol (vitamin D3) 25 25 mcg PO DAILY 07/07/21 07/07/21 Unknown History mcg (1,000 unit) tablet (Vitamin D3) lactobacillus combination no.4 3 3,000 mmu cells PO DAILY 07/07/21 07/07/21 Unknown History billion cell capsule (Probiotic) valsartan 320 1 tab PO DAILY 07/07/21 07/07/21 07/07/21 History mg-hydrochlorothiazide 12.5 mg tablet Physical Exam Vital Signs and Narrative: Vital Signs: Last Vital Signs Temp 97.2 F 07/09/21 12:00 Pulse 83 07/09/21 12:00 Resp 18 07/09/21 12:00 BP 186/81 H 07/09/21 12:00 Pulse Ox 99 07/09/21 12:00 Body Mass Index 20.5 General: no acute distress HEENT: atraumatic Neck: normal to visual inspection CVS: S1, S2, RRR Resp: CTA bilateral Chest: non tender GI: soft, tender, non distended : no CVA tenderness Skin: no rashes Extremities: no edema Neuro: Oriented X3, grossly intact Psych: cooperative Results Labs CBC and Chem 7: 07/09/21 05:47 07/08/21 05:51 Labs: Laboratory Results - last 24 hr 07/09/21 05:47 MCV 89.8 MCH 30.6 MCHC 34.1 RDW 13.8 Plt Count 223 MPV 8.7 L Immature Gran % (Auto) 0.4 Neut % (Auto) 74.2 H Lymph % (Auto) 14.0 L [place] % (Auto) 5.9 Eos % (Auto) 5.1 H Baso % (Auto) 0.4 Lymph # (Auto) 0.7 L [place] # (Auto) 0.3 Eos # (Auto) 0.2 Baso # (Auto) 0.0 Abs Immat Gran (auto) 0.02 Absolute Neuts (auto) 3.5 Absolute Nucleated RBC 0.000 Nucleated RBC % (auto) 0.0 Imaging Radiologist's Impressions: Impressions Abdomen/Pelvis CT 07/09/21 12:13 IMPRESSION: 1. Redemonstration of free air in the abdomen, as previously suggested this is concerning for perforated bowel. 2. Loculated fluid collection right upper quadrant abutting the left lobe of the liver slightly more prominent on today's exam concerning for developing abscess. Refer image 13 series 5. 3. Dilated intra and extrahepatic bile ducts, gallbladder not visualized might be contracted. 4. Small right pleural effusion with adjacent atelectasis at right lung base. (Referring physician staff is being called, to be alerted of the above findings and recommendations.) A J Assessment and Plan (1) HTN (hypertension): Status: Acute (2) Perforated gastric ulcer: Qualifiers: Gastric ulcer chronicity: unspecified ulcer chronicity Qualified Code(s): K25.5 - Chronic or unspecified gastric ulcer with perforation Status: Acute 86F presented with perforated gastric ulcer. Consult requested for persistent hypertension Hypertension Uncontrolled Most likely secondary to pain, would avoid overtreatment, however, since persistently elevated, now around 180, will add amlodipine 5mg daily Continue to monitor Perforated gastric ulcer Continue PPI and antibiotics Management per surgery
[2021-07-09] MEDS: amLODIPine Besylate 5 MG TABLET PO (13:07)
[2021-07-09 13:28] LABS: Prothrombin Time 11.2 SEC (9.9-13.0)
[2021-07-10] VITALS (14 sets, daily range): BP systolic 144–174; BP diastolic 67–79; PULSE 73–91; RESP 16–18; TEMP 36.2–37.1; O2SAT 96–98
[2021-07-10] MEDS: Piperacillin Sodium/Tazobactam 3.375 GM in 0.9 % Sodium Chloride 50 ML IV ×5 (00:13→23:55)
[2021-07-10] MEDS: Heparin Sodium,Porcine 5,000 UNIT/ML VIAL 5000 UNIT SUBCUT ×2 (05:30→17:32)
[2021-07-10] MEDS: Pantoprazole Sodium 80 MG in 0.9 % Sodium Chloride 80 ML 10 MG IV ×2 (05:30→15:47)
--- NOTE | 2021-07-10 08:17 | P.PNGS_ITS ---
Subjective Subjective Date of Service: 07/10/21 Interval history: feels well except for mild pain, upper abd no nausea or vomitting no fever Physical Exam Vital Signs: Vital Signs: Last Vital Signs Temp 98.1 F 07/10/21 07:36 Pulse 91 07/10/21 07:36 Resp 16 07/10/21 07:36 BP 167/73 H 07/10/21 07:36 Pulse Ox 97 07/10/21 07:36 Body Mass Index 20.5 Chemistry 07/07/21 07/08/21 10:56 05:51 Sodium 134 L 137 Potassium 4.0 3.7 Carbon Dioxide 22 26 BUN 23 H 19 H Creatinine 1.16 0.98 Calcium 9.4 8.6 D Hematology 07/07/21 07/08/21 07/09/21 10:56 05:51 05:47 WBC 10.1 7.7 4.7 L Hgb 12.7 10.9 L 10.5 L Plt Count 288 237 223 Const: General: comfortable and no acute distress Resp: Effort & Inspection: normal respiratory effort Cardio: Rate: regular rate GI: Other: mild tenderness upper abd Palpation (GI): Soft to palpation, not firm and no guarding Procedures Date of Service Date of Service: 07/10/21 Progress Note: A&P Assessment and plan (1) Perforated gastric ulcer: Status: Acute Assessment and Plan: clinically doing well ffup CT shows abscess for CT drainage today continue abx exam benign Fall Risk Details Current Medications: Current Medications Acetaminophen (Acetaminophen 325 Mg Tablet) 650 mg PO Q6H PRN PRN Reason: Pain, Mild (Pain Scale 1-3) Last Admin: 07/09/21 12:29 Dose: 650 mg Documented by: Amlodipine Besylate (Amlodipine Besylate 5 Mg Tablet) 5 mg PO DAILY [facility]; Protocol Last Admin: 07/09/21 13:07 Dose: 5 mg Documented by: Heparin Sodium (Porcine) (Heparin Sodium,Porcine 5,000 Unit/Ml Vial) 5,000 unit SUBCUT Q12H [facility] Last Admin: 07/10/21 05:30 Dose: 5,000 unit Documented by: Hydrochlorothiazide (Hydrochlorothiazide 12.5 Mg Tablet) 12.5 mg PO DAILY [facility]; Protocol Last Admin: 07/09/21 08:36 Dose: 12.5 mg Documented by: Dextrose/Lactated Ringer's (D5lr) 1,000 mls @ 80 mls/hr IVCONT .[id number] [facility] Last Admin: 07/10/21 07:33 Dose: Not Given Documented by: Piperacillin Sod/Tazobactam (Sod 3.375 gm/ Sodium Chloride) 50 mls @ 100 mls/hr IV Q6H [facility] Last Infusion: 07/10/21 06:12 Dose: Infused Documented by: Pantoprazole Sodium 80 mg/ (Sodium Chloride) 100 mls @ 10 mls/hr IV .Q10H [facility] Last Admin: 07/10/21 05:30 Dose: 8 mg/hr, 10 mls/hr Documented by: Morphine Sulfate (Morphine Sulfate 4 Mg/Ml Cartridge) 2 mg IVPUSH Q3H PRN; Protocol PRN Reason: Pain, severe Last Admin: 07/08/21 19:55 Dose: 2 mg Documented by: Ondansetron HCl (Ondansetron Hcl 4 Mg/2 Ml Vial) 4 mg IVPUSH Q8H PRN PRN Reason: Nausea Pharmacy Consult (Consult Rx Perform Med Rec) 1 each MISCELLANE ONCE PRN PRN Reason: Consult order Valsartan (Valsartan 320 Mg Tablet) 320 mg PO DAILY [facility]; Protocol Last Admin: 07/09/21 08:36 Dose: 320 mg Documented by: Time Spent With Patient Time: Total time spent is greater than 50% in coordination of care (as documented) at patient's floor/unit and/or counseling patient: Time with patient: 15 - 24 minutes Quality Stroke Does the patient have a stroke diagnosis?: No VTE Prior VTE?: No VTE Risk Level:: Surgical - high VTE Device Contraindication: Treatment Not Indicated VTE Drug Contraindication: N/A - Med Ordered
--- NOTE | 2021-07-10 10:23 | HO.PM.IMPN ---
Subjective Subjective Date of Service: 07/10/21 Interval History: cc: abdominal pain still with pain, but only when moving Cardiovascular Cardiovascular: Reports no additional cardiovascular complaints Gastrointestinal Gastrointestinal: Reports no additional gastrointestinal complaints Physical Exam Vital Signs: Vital Signs: Last Vital Signs Temp 98.1 F 07/10/21 07:36 Pulse 91 07/10/21 07:36 Resp 16 07/10/21 07:36 BP 167/73 H 07/10/21 07:36 Pulse Ox 97 07/10/21 07:36 Body Mass Index 20.5 General: AO X 3, no acute distress Resp: CTA bilateral, no accessory muscles used CVS: S1,S2,RRR GI: soft, ruq tender, non distended Neuro: motor grossly intact, alert Psych: appropriate affect, appropriate insight Objective Data Active Medications Acetaminophen (Acetaminophen 325 Mg Tablet) 650 mg PO Q6H PRN PRN Reason: Pain, Mild (Pain Scale 1-3) Last Admin: 07/09/21 12:29 Dose: 650 mg Documented by: KIMBERLY Amlodipine Besylate (Amlodipine Besylate 5 Mg Tablet) 5 mg PO DAILY [facility]; Protocol Last Admin: 07/09/21 13:07 Dose: 5 mg Documented by: KIMBERLY Heparin Sodium (Porcine) (Heparin Sodium,Porcine 5,000 Unit/Ml Vial) 5,000 unit SUBCUT Q12H [facility] Last Admin: 07/10/21 05:30 Dose: 5,000 unit Documented by: ABHISHEK Hydrochlorothiazide (Hydrochlorothiazide 12.5 Mg Tablet) 12.5 mg PO DAILY [facility]; Protocol Last Admin: 07/09/21 08:36 Dose: 12.5 mg Documented by: KIMBERLY Dextrose/Lactated Ringer's (D5lr) 1,000 mls @ 80 mls/hr IVCONT .[id number] [facility] Last Admin: 07/10/21 07:33 Dose: Not Given Documented by: MANDI Non-Admin Reason: IV Running Piperacillin Sod/Tazobactam (Sod 3.375 gm/ Sodium Chloride) 50 mls @ 100 mls/hr IV Q6H [facility] Last Infusion: 07/10/21 06:12 Dose: 0 mls/hr Documented by: ABHISHEK Pantoprazole Sodium 80 mg/ (Sodium Chloride) 100 mls @ 10 mls/hr IV .Q10H [facility] Last Admin: 07/10/21 05:30 Dose: 8 mg/hr, 10 mls/hr Documented by: ABHISHEK Morphine Sulfate (Morphine Sulfate 4 Mg/Ml Cartridge) 2 mg IVPUSH Q3H PRN; Protocol PRN Reason: Pain, severe Last Admin: 07/08/21 19:55 Dose: 2 mg Documented by: ABHISHEK Ondansetron HCl (Ondansetron Hcl 4 Mg/2 Ml Vial) 4 mg IVPUSH Q8H PRN PRN Reason: Nausea Pharmacy Consult (Consult Rx Perform Med Rec) 1 each MISCELLANE ONCE PRN PRN Reason: Consult order Valsartan (Valsartan 320 Mg Tablet) 320 mg PO DAILY [facility]; Protocol Last Admin: 07/09/21 08:36 Dose: 320 mg Documented by: KIMBERLY Labs CBC & Chem 7: 07/09/21 05:47 07/08/21 05:51 Labs: Laboratory Results - last 24 hr 07/09/21 12:56 PT 11.2 INR 1.0 Microbiology Microbiology Results: Microbiology 07/07/21 11:40 Blood Culture - Preliminary Blood - Venous No growth after 48 hours. 07/07/21 11:40 Blood Culture - Preliminary Blood - Venous No growth after 48 hours. Assessment and Plan (1) HTN (hypertension): Status: Acute Assessment and Plan: 86F presented with perforated gastric ulcer.? Consult requested for persistent hypertension Hypertension improved somewhat today, sBP in 160s, still reporting positional pain continue amlodipine 5mg daily, valsartan 320mg daily, hctz 12.5mg daily monitor Perforated gastric ulcer Continue PPI and antibiotics Management per surgery Quality Stroke Does the patient have a stroke diagnosis?: No VTE Prior VTE?: No VTE Risk Level:: Surgical - high VTE Device Contraindication: Treatment Not Indicated VTE Drug Contraindication: N/A - Med Ordered
[2021-07-10] MEDS: amLODIPine Besylate 5 MG TABLET PO (10:28)
[2021-07-10] MEDS: hydroCHLOROthiazide 12.5 MG TABLET PO (10:28)
[2021-07-10] MEDS: Valsartan 320 MG TABLET PO (10:28)
--- NOTE | 2021-07-10 11:53 | MHC.CM.PN ---
EMR REVIEWED, PER SURGICAL PT HAS ABSCESS LEFT UPPER QUAD AND WILL GO FOR DRAINAGE TODAY, CM MET W/PT EARLIER TODAY AND PT MAY WANT [facility] UPON D/C, CM WILL PLACE REFERRAL TO [facility].
--- NOTE | 2021-07-10 14:08 | HO.RADPN ---
RADIOLOGY Narrative Narrative: 6.3 fr RUQ drain placed. 5 mL clear serosanguinous fluid removed. Specimen sent for gram stain and culture.
--- NOTE | 2021-07-10 14:22 | CONS_ITS ---
DATE OF SERVICE: 07/08/2021 REASON FOR CONSULTATION: Abdominal pain and abnormal CT scan of stomach. HISTORY OF PRESENT ILLNESS: This has been obtained from the patient, her daughter, and the medical record. The patient is an 86-year-old healthy female, who was in her usual state of health up until about 3 to 4 days before admission. At that time, she developed the progressive onset of some upper abdominal discomfort and abdominal fullness. The pain progressed, prompting her to finally come to the ER. Her workup in the ER including a CT scan of the abdomen revealed free air and a suspicion of a perforated gastric ulcer. The patient denies any preceding GI history nor any GI symptoms up until the past several days. She has always enjoyed a good appetite without any significant heartburn nor dysphagia. She has never had any ulcer disease. She does not use any aspirin nor NSAID products, and does not use any tobacco nor alcohol. Prior to this, she was not having any abdominal pain, weight loss, nor jaundice. Her bowel movements have been regular without any sign of bleeding. Since admission, her workup has included a Gastrografin upper GI series, which was negative for any sign of extravasation of contrast. She has been hemodynamically stable and has been afebrile. She does have some discomfort in the abdomen on the right side, but reports that things are definitely better than they were yesterday. She has had 2 to 3 bowel movements since admission and denies any signs of bleeding. She has had no vomiting. She denies any significant family history of GI malignancy nor ulcer disease. MEDICATIONS: At home included vitamin D, valsartan with hydrochlorothiazide. Medications here in the hospital include IV Protonix infusion, IV Zosyn, subcu heparin, hydrochlorothiazide, valsartan, Zofran p.r.n., and acetaminophen p.r.n. PAST MEDICAL HISTORY: Cholecystectomy. Appendectomy. Cataract surgery. Surgery on her spine. She has hypertension and she reports a history of elevated cholesterol. She denies history of diabetes, [place], stroke, lung disease, or kidney disease. SOCIAL HISTORY: She is a . She does not smoke nor use any significant amounts of alcohol. 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 FAMILY HISTORY: Noncontributory. REVIEW OF SYSTEMS: CONSTITUTIONAL: Up until the past few days, she was feeling very well with good appetite and good energy. SKIN: No rash. No pruritus. CARDIAC: No chest pain. PULMONARY: No cough. No hemoptysis. GASTROINTESTINAL: As above. URINARY: No dysuria. No hematuria. NEUROLOGIC: No headache or seizures. PHYSICAL EXAMINATION: GENERAL: The patient is a pleasant, alert, comfortable-appearing female. VITAL SIGNS: Have been stable and she has been afebrile. HEENT: Anicteric sclerae. NECK: Supple. CHEST: Clear. CARDIAC: Normal S1 and S2. ABDOMEN: Soft, nondistended. Normal bowel sounds. There is some rather diffuse right-sided abdominal tenderness, but there is no mass, rebound, nor significant guarding. The abdomen is nondistended. EXTREMITIES: Without edema. LABORATORY DATA: White count yesterday was 10.1, today 7.7. Hemoglobin yesterday was 12.7, today is 10.9. Platelets 237,000. PT 13.1 with INR 1.2. Normal electrolytes. BUN 19, creatinine 0.98, fasting blood sugar 125. LFT slightly elevated with an AST 58, ALT 48, and alkaline phosphatase 129 with a normal total bilirubin. Albumin is 3.0. Lipase was 11. COVID was negative. She had a CAT scan yesterday, which describes free air with a small amount of ascites near the liver. There was a question of air in the wall of the distal stomach with some slight dilatation of the gastric wall. The subsequent upper GI series with Gastrografin was negative for any extravasation of contrast. There was felt to be the small air collection adjacent to the distal stomach. IMPRESSION: Given the clinical history, this appears to be an acute perforation of a gastric ulcer. She appears quite stable and her abdominal exam is currently benign other than some abdominal tenderness to palpation. She appears quite stable in general despite the underlying diagnosis. She denies any preceding history of GI symptoms and has no risk factors for ulcer disease. Given her excellent clinical appearance and no preceding history, I doubt this represents a GI neoplasm. At this point, I would recommend checking a H pylori serology, and continuing her constant IV Protonix infusion. If surgery is ultimately avoided, I would then recommend an eventual outpatient upper endoscopy in the next 1 to 2 months. I shall leave her overall management in regard to advancing her diet and plans for any further imaging studies and/or surgical intervention up to the surgical service. This has all been discussed with the patient and her daughter in detail and they are comfortable with the plan. At this point, I do not think any further intervention on my part is required while she is an inpatient and I would plan to follow her up in the office as an outpatient if need be in regard to setting up of an eventual outpatient upper endoscopy. Thank you for this consultation. MD ARCHIE Álvarez/CALVIN / [phone] MTDDorothy
[2021-07-10] MEDS: Dextrose 5 % and Lactated Ring 1,000 ML 80 ML IVCONT ×2 (14:45→23:55)
--- NOTE | 2021-07-10 16:38 | PM.EVENT ---
Event Note Date of Service: 07/10/21 Event Note: She underwent CT drainage of fluid collection near the stomach I discussed this with Dr. Graham Fluid aspirated was clear, serosanguineous Drain was left in place Abdomen remained soft Drain output is clear I will restarted on clear liquids and will advance this tomorrow as tolerated Continue with antibiotics for now She looks well and nonseptic
[2021-07-11] VITALS (7 sets, daily range): BP systolic 144–167; BP diastolic 69–77; PULSE 80–93; RESP 16–18; TEMP 36.1–37; O2SAT 95–98
[2021-07-11] MEDS: Acetaminophen 325 MG TABLET 650 MG PO (01:47)
[2021-07-11 05:36] LABS: Hematocrit 31.7 % (37-47); Hemoglobin 11.1 g/dl (12.0-16.0); Mean Corpuscular Hemoglobin 30.9 pg (27.0-33.0); Mean Corpuscular Volume 88.3 fL (80-98); Mean Platelet Volume 8.4 fL (9.4-12.3); Platelet Count 230 X10*3/uL (160-400); Red Blood Count 3.59 X10*6/uL (4.20-5.50); Red Cell Distribution Width 13.3 % (11.0-16.0); White Blood Count 4.3 X10*3/uL (4.8-10.8)
[2021-07-11] MEDS: Pantoprazole Sodium 80 MG in 0.9 % Sodium Chloride 80 ML 10 MG IV ×3 (05:57→21:30)
[2021-07-11] MEDS: Piperacillin Sodium/Tazobactam 3.375 GM in 0.9 % Sodium Chloride 50 ML IV ×4 (05:57→23:53)
[2021-07-11] MEDS: Heparin Sodium,Porcine 5,000 UNIT/ML VIAL 5000 UNIT SUBCUT ×2 (06:00→17:46)
[2021-07-11 06:08] LABS: Alanine Aminotransferase 32 U/L (0-31); Albumin Level 2.8 g/dL (3.5-5.0); Alkaline Phosphatase 100 U/L (39-117); Anion Gap 10 (12-20); Aspartate Amino Transferase 19 U/L (5-31); Bilirubin Direct 0.3 mg/dL (0.0-0.5); Bilirubin Total 0.6 mg/dL (0.0-1.0); Blood Urea Nitrogen 3 mg/dL (9-16); Calcium 8.4 mg/dL (8.4-10.2); Carbon Dioxide 28 mmol/L (22-29); Chloride 101 mmol/L (96-108); Creatinine Clr Calc Pharmacy 41.8; Estimated Glomerular Filt Rate > 60; Glucose Fasting 107 mg/dL (60-99); Sodium 136 mmol/L (135-145); Total Protein 4.8 g/dL (6.5-8.0)
[2021-07-11] MEDS: Valsartan 320 MG TABLET PO (07:47)
[2021-07-11] MEDS: amLODIPine Besylate 5 MG TABLET PO (07:47)
[2021-07-11] MEDS: hydroCHLOROthiazide 12.5 MG TABLET PO (07:47)
--- NOTE | 2021-07-11 08:27 | PM.PNGS ---
Subjective Subjective Date of Service: 07/11/21 <Joselin Tejada PA-C - Last Filed: 07/11/21 08:33> 07/11/21 <Dustin Donahue MD - Last Filed: 07/11/21 09:54> Interval history: Tired- did not sleep well last night. Otherwise, feeling well. Pain is minimal. OOB and ambulating. Having loose BM. <Joselin Tejada PA-C - Last Filed: 07/11/21 08:33> Physical Exam Vital Signs: Vital Signs: Last Vital Signs Temp 98.4 F 07/11/21 07:58 Pulse 80 07/11/21 07:58 Resp 16 07/11/21 07:58 BP 144/77 H 07/11/21 07:58 Pulse Ox 96 07/11/21 07:58 Body Mass Index 20.5 <MILES Foy Last Filed: 07/11/21 08:33> Const: General: comfortable, no acute distress and alert <Joselin Tejada PA-C - Last Filed: 07/11/21 08:33> Orientation/consciousness: patient oriented x3 <MILES Foy Last Filed: 07/11/21 08:33> Eyes: Sclerae: sclerae normal <MILES Foy Last Filed: 07/11/21 08:33> Resp: Effort & Inspection: normal respiratory effort <Joselin Tejada PA-C - Last Filed: 07/11/21 08:33> GI: Other: pigtail drain with serous drainage <MILES Foy Last Filed: 07/11/21 08:33> Inspection: No distended <MILES Foy Last Filed: 07/11/21 08:33> Palpation (GI): Soft to palpation, nontender, no guarding and not rigid <MILES Foy Last Filed: 07/11/21 08:33> Percussion: Yes normal to percussion <MILES Foy Last Filed: 07/11/21 08:33> Skin: General skin exam: no rashes or lesions noted <Joselin Tejada PA-C - Last Filed: 07/11/21 08:33> Neuro: General: patient oriented x3 <MILES Foy Last Filed: 07/11/21 08:33> Extrem: General: Yes no clubbing, cyanosis or edema <Joselin Tejada PA-C - Last Filed: 07/11/21 08:33> Procedures Date of Service Date of Service: 07/11/21 <Joselin Tejada PA-C - Last Filed: 07/11/21 08:33> Progress Note: A&P Assessment and plan (1) Perforated gastric ulcer: Status: Acute <MILES Foy Last Filed: 07/11/21 08:33> Assessment and Plan: Underwent CT guided drainage yesterday- 6.3 fr RUQ drain placed, 5 mL clear serosanguinous fluid removed. Feels improved this morning without any pain. OOB without difficulty. Moving bowels. VSS. Abd exam very benign, pigtail drain with serous output. Will advance to solid diet. Continue Zosyn, IV Protonix. <Joselin Tejada PA-C - Last Filed: 07/11/21 08:33> Underwent CT guided drainage yesterday- 6.3 fr RUQ drain placed, 5 mL clear serosanguinous fluid removed. Feels improved this morning without any pain. OOB without difficulty. Moving bowels. VSS. Abd exam very benign, pigtail drain with serous output. Will advance to solid diet. Continue Zosyn, IV Protonix. She feels well this morning Hungry and wants to try food Drain output clear, serous She looks well Abdomen soft Okay to start diet Seen and examined - agree with GISELA Tejada <Dustin Donahue MD - Last Filed: 07/11/21 09:54> Fall Risk Details Current Medications: Current Medications Acetaminophen (Acetaminophen 325 Mg Tablet) 650 mg PO Q6H PRN PRN Reason: Pain, Mild (Pain Scale 1-3) Last Admin: 07/11/21 01:47 Dose: 650 mg Documented by: Amlodipine Besylate (Amlodipine Besylate 5 Mg Tablet) 5 mg PO DAILY [facility]; Protocol Last Admin: 07/11/21 07:47 Dose: 5 mg Documented by: Heparin Sodium (Porcine) (Heparin Sodium,Porcine 5,000 Unit/Ml Vial) 5,000 unit SUBCUT Q12H [facility] Last Admin: 07/11/21 06:00 Dose: 5,000 unit Documented by: Hydrochlorothiazide (Hydrochlorothiazide 12.5 Mg Tablet) 12.5 mg PO DAILY [facility]; Protocol Last Admin: 07/11/21 07:47 Dose: 12.5 mg Documented by: Dextrose/Lactated Ringer's (D5lr) 1,000 mls @ 80 mls/hr IVCONT .[id number] [facility] Last Admin: 07/10/21 23:55 Dose: 80 mls/hr Documented by: Piperacillin Sod/Tazobactam (Sod 3.375 gm/ Sodium Chloride) 50 mls @ 100 mls/hr IV Q6H [facility] Last Infusion: 07/11/21 07:15 Dose: Infused Documented by: Pantoprazole Sodium 80 mg/ (Sodium Chloride) 100 mls @ 10 mls/hr IV .Q10H [facility] Last Admin: 07/11/21 05:57 Dose: 8 mg/hr, 10 mls/hr Documented by: Morphine Sulfate (Morphine Sulfate 4 Mg/Ml Cartridge) 2 mg IVPUSH Q3H PRN; Protocol PRN Reason: Pain, severe Last Admin: 07/08/21 19:55 Dose: 2 mg Documented by: Ondansetron HCl (Ondansetron Hcl 4 Mg/2 Ml Vial) 4 mg IVPUSH Q8H PRN PRN Reason: Nausea Pharmacy Consult (Consult Rx Perform Med Rec) 1 each MISCELLANE ONCE PRN PRN Reason: Consult order Valsartan (Valsartan 320 Mg Tablet) 320 mg PO DAILY [facility]; Protocol Last Admin: 07/11/21 07:47 Dose: 320 mg Documented by: <Joselin Tejada PA-C - Last Filed: 07/11/21 08:33> Time Spent With Patient Time: Total time spent is greater than 50% in coordination of care (as documented) at patient's floor/unit and/or counseling patient: <Joselin Tejada PA-C - Last Filed: 07/11/21 08:33> Time with patient: 15 - 24 minutes <Joselin Tejada PA-C - Last Filed: 07/11/21 08:33> Quality Stroke Does the patient have a stroke diagnosis?: No <Joselin Tejada PA-C - Last Filed: 07/11/21 08:33> VTE Prior VTE?: No <Joselin Tejada PA-C - Last Filed: 07/11/21 08:33> VTE Risk Level:: Surgical - high <Joselin Tejada PA-C - Last Filed: 07/11/21 08:33> VTE Device Contraindication: Treatment Not Indicated <Joselin Tejada PA-C - Last Filed: 07/11/21 08:33> VTE Drug Contraindication: N/A - Med Ordered <Joselin Tejada PA-C - Last Filed: 07/11/21 08:33>
--- NOTE | 2021-07-11 09:33 | P.PNIM_ITS ---
Subjective Subjective Date of Service: 07/11/21 Interval History: cc: abdominal pain improved pain today Cardiovascular Cardiovascular: Reports no additional cardiovascular complaints Respiratory Respiratory: Reports no additional respiratory complaints Physical Exam Vital Signs: Vital Signs: Last Vital Signs Temp 98.4 F 07/11/21 07:58 Pulse 80 07/11/21 07:58 Resp 16 07/11/21 07:58 BP 144/77 H 07/11/21 07:58 Pulse Ox 96 07/11/21 07:58 Body Mass Index 20.5 General: AO X 3, no acute distress Resp:? CTA bilateral, no accessory muscles used CVS: S1,S2,RRR GI: soft, drain in place with serous drainage, non distended Neuro:? motor grossly intact, alert Psych: appropriate affect, appropriate insight? Objective Data Active Medications Acetaminophen (Acetaminophen 325 Mg Tablet) 650 mg PO Q6H PRN PRN Reason: Pain, Mild (Pain Scale 1-3) Last Admin: 07/11/21 01:47 Dose: 650 mg Documented by: ABHISHEK Amlodipine Besylate (Amlodipine Besylate 5 Mg Tablet) 5 mg PO DAILY [facility]; Protocol Last Admin: 07/11/21 07:47 Dose: 5 mg Documented by: ADELE Heparin Sodium (Porcine) (Heparin Sodium,Porcine 5,000 Unit/Ml Vial) 5,000 unit SUBCUT Q12H [facility] Last Admin: 07/11/21 06:00 Dose: 5,000 unit Documented by: ABHISHEK Hydrochlorothiazide (Hydrochlorothiazide 12.5 Mg Tablet) 12.5 mg PO DAILY [facility]; Protocol Last Admin: 07/11/21 07:47 Dose: 12.5 mg Documented by: ADELE Dextrose/Lactated Ringer's (D5lr) 1,000 mls @ 80 mls/hr IVCONT .[id number] [facility] Last Admin: 07/10/21 23:55 Dose: 80 mls/hr Documented by: ABHISHEK Piperacillin Sod/Tazobactam (Sod 3.375 gm/ Sodium Chloride) 50 mls @ 100 mls/hr IV Q6H [facility] Last Infusion: 07/11/21 07:15 Dose: 0 mls/hr Documented by: ABHISHEK Pantoprazole Sodium 80 mg/ (Sodium Chloride) 100 mls @ 10 mls/hr IV .Q10H [facility] Last Admin: 07/11/21 05:57 Dose: 8 mg/hr, 10 mls/hr Documented by: ABHISHEK Morphine Sulfate (Morphine Sulfate 4 Mg/Ml Cartridge) 2 mg IVPUSH Q3H [facility]; Protocol PRN Reason: Pain, severe Last Admin: 07/08/21 19:55 Dose: 2 mg Documented by: ABHISHEK Ondansetron HCl (Ondansetron Hcl 4 Mg/2 Ml Vial) 4 mg IVPUSH Q8H PRN PRN Reason: Nausea Pharmacy Consult (Consult Rx Perform Med Rec) 1 each MISCELLANE ONCE PRN PRN Reason: Consult order Valsartan (Valsartan 320 Mg Tablet) 320 mg PO DAILY [facility]; Protocol Last Admin: 07/11/21 07:47 Dose: 320 mg Documented by: ADELE Labs CBC & Chem 7: 07/11/21 05:22 07/11/21 05:22 Labs: Laboratory Results - last 24 hr 07/11/21 07/11/21 05:22 05:22 MCV 88.3 MCH 30.9 MCHC 35.0 RDW 13.3 Plt Count 230 MPV 8.4 L Absolute Nucleated RBC 0.000 Nucleated RBC % (auto) 0.0 Anion Gap 10 L Estim Creat Clear Calc 41.8 Estimated GFR > 60 Fasting Glucose 107 H Calcium 8.4 Total Bilirubin 0.6 Direct Bilirubin 0.3 AST 19 D ALT 32 H Alkaline Phosphatase 100 D Total Protein 4.8 L Albumin 2.8 L Microbiology Microbiology Results: Microbiology 07/10/21 Unknown Gram Stain - Final Abdominal Fluid Routine Culture - Preliminary Culture in progress. Anaerobic Culture - Preliminary Culture in progress. Assessment and Plan (1) HTN (hypertension): Status: Acute Assessment and Plan: 86F presented with perforated gastric ulcer.? Consult requested for persistent hypertension Hypertension continues to improve, sbp 144 this AM continue amlodipine 5mg daily, valsartan 320mg daily, hctz 12.5mg daily monitor Perforated gastric ulcer Continue PPI and antibiotics Management per surgery s/p drain placement 07/10/21 follow up cutlures Quality Stroke Does the patient have a stroke diagnosis?: No VTE Prior VTE?: No VTE Risk Level:: Surgical - high VTE Device Contraindication: Treatment Not Indicated VTE Drug Contraindication: N/A - Med Ordered
[2021-07-12 03:59] VITALS: BP 160/77; PULSE 81; RESP 18; TEMP 36; O2SAT 97
[2021-07-12] MEDS: Piperacillin Sodium/Tazobactam 3.375 GM in 0.9 % Sodium Chloride 50 ML IV ×2 (05:42→12:02)
[2021-07-12] MEDS: Heparin Sodium,Porcine 5,000 UNIT/ML VIAL 5000 UNIT SUBCUT (05:42)
[2021-07-12] MEDS: Pantoprazole Sodium 80 MG in 0.9 % Sodium Chloride 80 ML 10 MG IV (06:26)
[2021-07-12 07:27] VITALS: BP 142/69; PULSE 77; RESP 18; TEMP 36.8; O2SAT 96
[2021-07-12] MEDS: hydroCHLOROthiazide 12.5 MG TABLET PO (08:03)
[2021-07-12] MEDS: Valsartan 320 MG TABLET PO (08:03)
[2021-07-12] MEDS: amLODIPine Besylate 5 MG TABLET PO (08:04)
--- NOTE | 2021-07-12 08:29 | PM.PNGS ---
Subjective Subjective Date of Service: 07/19/21 Interval history: She continues to feel well Minimal pain Tolerating diet well No nausea or vomiting Physical Exam Vital Signs: Vital Signs: Last Vital Signs Temp 98.3 F 07/12/21 07:27 Pulse 77 07/12/21 07:27 Resp 18 07/12/21 07:27 BP 142/69 H 07/12/21 07:27 Pulse Ox 96 07/12/21 07:27 Body Mass Index 20.5 Const: Other: Chemistry 07/11/21 05:22 Sodium 136 Potassium 3.0 L Carbon Dioxide 28 BUN 3 L D Creatinine 0.86 Calcium 8.4 Hematology 07/11/21 05:22 WBC 4.3 L Hgb 11.1 L Plt Count 230 General: comfortable and no acute distress Resp: Effort & Inspection: normal respiratory effort Cardio: Rate: regular rate GI: Palpation (GI): Soft to palpation, not firm, Tenderness to palpation present (GI) (Very mild tenderness on the upper abdomen on deep palpation) and no guarding Procedures Date of Service Date of Service: 07/12/21 Progress Note: A&P Assessment and plan (1) Perforated gastric ulcer: Status: Acute Assessment and Plan: Doing very well drain output very scanty, clear Abdomen soft Good GI function Clinically looks well She wants to go Okay to discharge today on PPIs, antibiotics DC drain prior to discharge Fall Risk Details Current Medications: Current Medications Acetaminophen (Acetaminophen 325 Mg Tablet) 650 mg PO Q6H PRN PRN Reason: Pain, Mild (Pain Scale 1-3) Last Admin: 07/11/21 01:47 Dose: 650 mg Documented by: Amlodipine Besylate (Amlodipine Besylate 5 Mg Tablet) 5 mg PO DAILY DOUG; Protocol Last Admin: 07/12/21 08:04 Dose: 5 mg Documented by: Heparin Sodium (Porcine) (Heparin Sodium,Porcine 5,000 Unit/Ml Vial) 5,000 unit SUBCUT Q12H DOUG Last Admin: 07/12/21 05:42 Dose: 5,000 unit Documented by: Hydrochlorothiazide (Hydrochlorothiazide 12.5 Mg Tablet) 12.5 mg PO DAILY DOUG; Protocol Last Admin: 07/12/21 08:03 Dose: 12.5 mg Documented by: Piperacillin Sod/Tazobactam (Sod 3.375 gm/ Sodium Chloride) 50 mls @ 100 mls/hr IV Q6H DOUG Last Infusion: 07/12/21 06:22 Dose: Infused Documented by: Pantoprazole Sodium 80 mg/ (Sodium Chloride) 100 mls @ 10 mls/hr IV .Q10H DOUG Last Admin: 07/12/21 06:26 Dose: 8 mg/hr, 10 mls/hr Documented by: Morphine Sulfate (Morphine Sulfate 4 Mg/Ml Cartridge) 2 mg IVPUSH Q3H PRN; Protocol PRN Reason: Pain, severe Last Admin: 07/08/21 19:55 Dose: 2 mg Documented by: Ondansetron HCl (Ondansetron Hcl 4 Mg/2 Ml Vial) 4 mg IVPUSH Q8H PRN PRN Reason: Nausea Pharmacy Consult (Consult Rx Perform Med Rec) 1 each MISCELLANE ONCE PRN PRN Reason: Consult order Valsartan (Valsartan 320 Mg Tablet) 320 mg PO DAILY DOUG; Protocol Last Admin: 07/12/21 08:03 Dose: 320 mg Documented by: Time Spent With Patient Time: Total time spent is greater than 50% in coordination of care (as documented) at patient's floor/unit and/or counseling patient: Time with patient: 15 - 24 minutes Quality Stroke Does the patient have a stroke diagnosis?: No VTE Prior VTE?: No VTE Risk Level:: Surgical - high VTE Device Contraindication: Treatment Not Indicated VTE Drug Contraindication: N/A - Med Ordered
[2021-07-12 11:47] VITALS: BP 129/60; PULSE 85; RESP 18; TEMP 36.6; O2SAT 96
--- NOTE | 2021-07-12 12:09 | HO.PM.IMPN ---
Subjective Subjective Date of Service: 07/12/21 Interval History: Being followed for perforated gastric ulcer and abdominal pain, patient this a.m. is tolerating regular diet abdominal pain has significantly improved. Review of Systems General no headache, no dizziness, no fever chills. CVS no chest pain, no palpitation. Respiratory no cough, no sob. Gastrointestinal no nausea no vomiting, no abdominal pain Physical Exam Vital Signs: Vital Signs: Last Vital Signs Temp 97.9 F 07/12/21 11:47 Pulse 85 07/12/21 11:47 Resp 18 07/12/21 11:47 BP 129/60 07/12/21 11:47 Pulse Ox 96 07/12/21 11:47 Body Mass Index 20.5 General AxOx3, no acute distress. Neck supple, no JVD. CVS regular rate rhythm, Respiratory lungs clear to auscultation, no respiratory distress Gastrointestinal abdomen soft, nontender, bowel sounds audible, WATSON drain with couple drops of serous fluid Extremities no edema. Neuro nonfocal patient moving all 4 extremity speech clear. Skin no rash Objective Data Active Medications Acetaminophen (Acetaminophen 325 Mg Tablet) 650 mg PO Q6H PRN PRN Reason: Pain, Mild (Pain Scale 1-3) Last Admin: 07/11/21 01:47 Dose: 650 mg Documented by: ABHISHEK Amlodipine Besylate (Amlodipine Besylate 5 Mg Tablet) 5 mg PO DAILY [facility]; Protocol Last Admin: 07/12/21 08:04 Dose: 5 mg Documented by: ADELE Heparin Sodium (Porcine) (Heparin Sodium,Porcine 5,000 Unit/Ml Vial) 5,000 unit SUBCUT Q12H [facility] Last Admin: 07/12/21 05:42 Dose: 5,000 unit Documented by: VERA Hydrochlorothiazide (Hydrochlorothiazide 12.5 Mg Tablet) 12.5 mg PO DAILY [facility]; Protocol Last Admin: 07/12/21 08:03 Dose: 12.5 mg Documented by: ADELE Piperacillin Sod/Tazobactam (Sod 3.375 gm/ Sodium Chloride) 50 mls @ 100 mls/hr IV Q6H DOUG Last Admin: 07/12/21 12:02 Dose: 100 mls/hr Documented by: ADELE Pantoprazole Sodium 80 mg/ (Sodium Chloride) 100 mls @ 10 mls/hr IV .Q10H DOUG Last Admin: 07/12/21 06:26 Dose: 8 mg/hr, 10 mls/hr Documented by: PHILLIP Morphine Sulfate (Morphine Sulfate 4 Mg/Ml Cartridge) 2 mg IVPUSH Q3H PRN; Protocol PRN Reason: Pain, severe Last Admin: 07/08/21 19:55 Dose: 2 mg Documented by: ABHISHEK Ondansetron HCl (Ondansetron Hcl 4 Mg/2 Ml Vial) 4 mg IVPUSH Q8H PRN PRN Reason: Nausea Pharmacy Consult (Consult Rx Perform Med Rec) 1 each MISCELLANE ONCE PRN PRN Reason: Consult order Valsartan (Valsartan 320 Mg Tablet) 320 mg PO DAILY [facility]; Protocol Last Admin: 07/12/21 08:03 Dose: 320 mg Documented by: ADELE Labs CBC & Chem 7: 07/11/21 05:22 07/11/21 05:22 Labs: Laboratory Results - last 24 hr 07/09/21 17:50 Stool H. pylori Ag SEE NOTE Microbiology Microbiology Results: Microbiology 07/10/21 Unknown Gram Stain - Final Abdominal Fluid Routine Culture - Final Yeast Viridans streptococcus group Anaerobic Culture - Preliminary Culture in progress. Assessment and Plan (1) HTN (hypertension): Status: Acute (2) Perforated gastric ulcer: Status: Acute Assessment and Plan: 86F presented with perforated gastric ulcer.? Consult requested for persistent hypertension Hypertension Blood pressure improved with few high readings, discharge patient on amlodipine 5mg daily, valsartan 320mg daily, hctz 12.5mg daily Recommend to monitor blood pressure as outpatient Perforated gastric ulcer Abdominal fluid grew yeast and waited in Streptococcus Continue PPI and antibiotics Management per surgery s/p drain placement 07/10/21, minimal drainage, plan is for removal of drain and discharge home Recommend outpatient follow-up with Gastroenterology for upper endoscopy H pylori antigen not noted in stool study Quality Stroke Does the patient have a stroke diagnosis?: No VTE Prior VTE?: No VTE Risk Level:: Surgical - high VTE Device Contraindication: Treatment Not Indicated VTE Drug Contraindication: N/A - Med Ordered
--- NOTE | 2021-07-12 13:06 | MHC.CM.PN ---
PATIENT IS DISCHARGED HOME WITH NO SERVICES. IMM 07/11 IN CHART.
--- NOTE | 2021-07-12 13:09 | P.DS_ITS ---
DS: Providers Provider Date of Service: 07/12/21 Date of admission: 07/07/21 14:57 Primary care physician: Tyra Ramos NP Attending physician on admission: Aditi Lester Consults: 07/08/21 13:25 Consult to Gastroenterology Routine Consulting Provider: Ronaldo Pollock Reason for consultation: PUD with recent perforation Has provider been notified: Yes 07/09/21 12:48 Consult to Hospitalist Routine Consulting Provider: Hospitalist Reason For Exam: hypertension Attending physician on discharge: Dustin Donahue DS: Diagnosis Discharge Diagnosis (1) HTN (hypertension): Status: Acute (2) Perforated gastric ulcer: Status: Acute DS: Summary Hospital Course Hospital Course: BRIEF HPI: Justyna Browning is a 86 year old female who was feeling well until 2 nights ago.? She was away on a trip and was standing in line to get supper when she experienced acute onset of severe epigastric pain that radiated to both subcostal areas.? It was not associated with nausea vomiting fever or chills.? The pain improved but has not resolved.? She has experienced persistent right upper quadrant and right lower quadrant abdominal pain and tenderness.? Appetite is diminished.? She has been able to take fluids and some solids.? She has not used any nonsteroidal medications or aspirin.? She does not drink any signi ficant amount of alcohol or smoke cigarettes.? She does not have a history of abdominal pain or peptic ulcer disease.? She had a normal bowel movement yesterday. When she was preparing to leave on her trip 4 days ago, she was reaching up to get something off of a high shelf and lost her balance.? She fell and landed on her right hip area.? She developed a bruise, but did not have significant pain and was able to get right back up and continue packing.? When she developed the epigastric pain, she thought it likely was related to the fall that she had taken 2 days earlier.? She returned home last night and this morning called her primary care office to arrange an urgent visit appointment.? The nurse that the primary care office advised her that imaging studies likely would be needed and suggested coming to the emergency department. In the emergency department, CT scan of the chest, abdomen and pelvis was obtained.? This demonstrated free intraperitoneal air and some free fluid, particularly around the proximal right colon.? A site of possible perforation was identified in the distal stomach.? White blood count is 10.1 with 89% neutrophils.? BUN is 23 and creatinine 1.13.? Sodium is slightly low at 134. HOSPITAL COURSE: The patient was admitted to the surgical service for further treatment of the likely diagnosis of perforated ulcer. It was thought the perforation probably occurred 2 days prior based upon the reported timing of symptom onset.? Treatment options were discussed including operative with laparotomy, albert patch oversew versus non operative treatment if it appears that the perforation has sealed spontaneously with confirmation via Gastrografin upper GI.?Her preference is to proceed with non operative treatment if it appears to be a reasonable choice.? Upper GI with water-soluble contrast material was therefore ordered with further plan dependent on clinical course. The Gastrografin upper GI did not show any evidence of contrast leak.?The possible site of ulceration was identified, but cannot be diagnosed with certainty.? Clinical history and imaging findings are most consistent with a perforated peptic ulcer with spontaneous sealing.?Findings were reviewed with radiologist Dr. Graham by Dr. Lester and then with the patient.? Treatment options were again discussed.? She continued to prefer non operative treatment.? She was kept NPO, on IV Protonix, Zosyn and IV fluids.?A hospitalist consult was obtained for hypertension as she had a persistently elevated SBP and she was restarted on HCTZ and amlodipine. She also required the addition of amlodipine for control during her stay. A GI consult with Dr. Pollock was also obtained. He recommended endoscopy in 2 months if she was able to continue with nonoperative measures. A H pylori serology was also obtained which was negative. She did quite well and improved symptomatically. Her abdominal pain improved. She was tolerating liquids. A repeat CT scan of the abd/pelvis was obtained which revealed a collection of fluid in the right upper quadrant. She therefore underwent CT guided drainage of this and a small amount of serous fluid was aspirated and drain placed. She had virtually no residual abdominal pain and was advanced to a solid diet which she was tolerating without nausea or vomiting. She was OOB without difficulty and ambulating. She was moving her bowels. Her drain continued to have scanty serous output and was removed on the day of discharge. Final cultures of the fluid collection were pending at the time of discharge. On the day of discharge, she had no abdominal pain, was tolerating a solid diet and was clinically appearing well with a very benign abdominal exam. She was discharged to home on 07/12/21 in stable condition. She was discharged to home on a PO course of Augmentin and Omeprazole BID. She is to follow up with Dr. Donahue, Dr. Pollock and her PCP upon discharge. She was educated to avoid all NSAIDs. Status at Discharge Functional status at discharge: independent ambulation Overall status at discharge: patient is back to baseline Time Spent with Patient Time attestation: Total time spent providing and/or coordinating discharge services: Discharge coordination time: Greater than 30 minutes Quality: Stroke Does the patient have a stroke diagnosis?: No Physical Exam Vital Signs: Vital Signs: Last Vital Signs Temp 97.9 F 07/12/21 11:47 Pulse 85 07/12/21 11:47 Resp 18 07/12/21 11:47 BP 129/60 07/12/21 11:47 Pulse Ox 96 07/12/21 11:47 Body Mass Index 20.5 Const: General: comfortable, no acute distress and alert Orientation/consciousness: patient oriented x3 Resp: Effort & Inspection: normal respiratory effort Cardio: Rate: regular rate GI: Inspection: Yes normal to inspection and No distended Palpation (GI): Soft to palpation, nontender, no guarding and not rigid Percussion: Yes normal to percussion Skin: General skin exam: no rashes or lesions noted Neuro: General: patient oriented x3 Extrem: General: Yes no clubbing, cyanosis or edema DS: Data Data Completed and Pending Labs on day of discharge: Laboratory Results - last 24 hr 07/09/21 17:50 Stool H. pylori Ag SEE NOTE Preliminary micro results at discharge 07/10/21 Unknown Anaerobic Culture - Preliminary Abdominal Fluid Culture in progress. 07/07/21 11:40 Blood Culture - Preliminary Blood - Venous No growth after 48 hours. 07/07/21 11:40 Blood Culture - Preliminary Blood - Venous No growth after 48 hours. Discharge Plan Discharge Patient Disposition: Home, Self-Care Discharge Diagnosis: perforated peptic ulcer Referrals: Tyra Ramos NP [Primary Care Provider] - 1 Week Dustin Donahue MD [Physician] - 1 Week Ronaldo Pollock [Physician] - 2 Months Discharge Medications: New amoxicillin-pot clavulanate [Augmentin] 500-125 mg tablet 1 tab PO BID Qty: 14 RF: 0 Continued omeprazole 20 mg capsule,delayed release(DR/EC) 20 mg PO BID Qty: 60 RF: 1 valsartan-hydrochlorothiazide 320-12.5 mg tablet 1 tab PO DAILY RF: 0 cholecalciferol (vitamin D3) [Vitamin D3] 25 mcg (1,000 unit) Tablet 25 mcg PO DAILY RF: 0 Probiotic 3 billion cell Capsule 3,000 mmu cells PO DAILY RF: 0 Discharge Orders: Discharge Order (Routine); Ordered 07/12/21 Ordered By: Dustin Donahue Diet: regular diet Activity on Discharge: As tolerated Stand Alone Forms: Patient Portal Discharge page Activity Restrictions/Additional Instructions: Avoid all NSAIDs (not limited to Advil, ibuprofen, motrin, naprosyn, naproxen, Aspirin). Care Plan Goals: Return to baseline health. Health Concerns: perforated gastric ulcer Plan of Treatment: PPI, s/p drainage Assessment: Improved Discharge Date/Time: 07/12/21 16:09
== END 2021-07-12 16:09 | disposition home or self-care (01) | DRG 380 ==
LOC: HO.ED 12:11 → HO.EDOVER 15:12 → HO.S3 15:37
PROVIDERS: Internal Medicine; Radiology Diagnostic Radiology; Admitting Provider Surgery; Emergency Provider Emergency Medicine; PCP Nurse Practitioner Family; Visit Provider Surgery
PROC: 0W9G30Z Drainage of Peritoneal Cavity with Drainage Device, Percutaneous Approach (ICD-10-PCS; principal; 2021-07-10 12:30)
DX: K25.1 Acute gastric ulcer with perforation (principal); K65.1 Peritoneal abscess; I10 Essential (primary) hypertension; Z20.822 Contact with and (suspected) exposure to COVID-19; Z79.899 Other long term (current) drug therapy
CPT/HCPCS: 36415; 71250; 74176; 74177; 74240; 75989; 80048; 80076; 83605; 83690; 85025; 85027; 85610; 85730; 86850; 86900; 86901; 87040; 87071; 87073; 87205; 87338; 87635; 96365; 96375; 99283; 99285; C1729; J2270; J2543; Q9967

== ENCOUNTER → 2021-07-24 15:30 | Outpatient (BNVA) | payer MEDICARE, SELFPAY | PROVIDERS: PCP Nurse Practitioner Family; Visit Provider Surgery | DX: Z48.815 Encounter for surgical aftercare following surgery on the digestive system (principal); K25.7 Chronic gastric ulcer without hemorrhage or perforation | CPT/HCPCS: 99212 ==

== ENCOUNTER 2021-10-27 08:26 | Day surgery (SDC) | payer MEDICARE, SELFPAY ==
[2021-10-20 10:18] VITALS: BMI 20.9
--- NOTE | 2021-10-26 09:14 | HO.ANESPROP2 ---
Documented by User: Laura Romero NP 10/26/21 09:16 HPI - Anesthesia Eval Consult details Narrative: 86yo F for Upper Endoscopy 07/2021 - Perforated gastric ulcer, CT guided drainage catheter PMFSH Active Problems Active Problems: All Active Problems (Updated 10/20/21 @ 10:10 by Samantha Bergman RN) Oral candidiasis (Acute) Perforated gastric ulcer (Acute) HTN (hypertension) (Acute) Past Medical History Medical History (Updated 10/27/21 @ 10:00 by Joaquina Mirza MD) Anemia High cholesterol HTN (hypertension) Hypokalemia Intra-abdominal abscess Osteoarthritis of both knees Sciatica Family History Family History Mother HTN (hypertension) Father Lymphoma Sister Breast cancer Brother Diabetes mellitus Surgical History Surgical History History of appendectomy History of back surgery History of bilateral cataract extraction History of cholecystectomy History of tonsillectomy Hx of colonoscopy Social History Social History Household Members: None Housing: Condominium Are you a primary home care and home health aides teacher to a significant other at home: No Do you presently have visiting nurse or other home services: No Patient Tobacco Use Status: Never used Tobacco Use of substances other than those prescribed or required for medical reasons: No Have you been hit, kicked, punched, or otherwise hurt by someone within the past year? If so, by whom?: No Are you DNR?: No Advance Directives: No Advance Directives Information Provided: No Advance Directives on File: No Recently lost weight without trying: No Eating poorly because of decreased appetite: No Nutrition Risks: No Nutritional Risk Patient : No service: No Current occupational status: retired Meds Allergies Allergy/AdvReac Type Severity Reaction Status Date / Time No Known Allergies Allergy Verified 10/20/21 10:10 Home Medications Medication Instructions Recorded Confirmed Last Taken Type cholecalciferol (vitamin D3) 25 25 mcg PO DAILY 07/07/21 10/20/21 Unknown History mcg (1,000 unit) tablet (Vitamin D3) lactobacillus combination no.4 3 3,000 mmu cells PO DAILY 07/07/21 10/20/21 Unknown History billion cell capsule (Probiotic) valsartan 320 1 tab PO DAILY 07/07/21 10/20/21 07/07/21 History mg-hydrochlorothiazide 12.5 mg tablet Exam Exam Date and Time: October 26, [id number] Height,Weight and Vital Signs: Height 5 ft 5 in Weight 57.153 kg Assessment and Plan Assessment Anesthesia Assessment: Chart Reviewed Documented by User: Jaoquina Mirza MD 10/27/21 10:09 [facility] Past Medical History Medical History (Updated 10/27/21 @ 10:00 by Joaquina Mirza MD) Anemia High cholesterol HTN (hypertension) Hypokalemia Intra-abdominal abscess Osteoarthritis of both knees Sciatica Family History Family History Mother HTN (hypertension) Father Lymphoma Sister Breast cancer Brother Diabetes mellitus Family history of problems with anesthesia: No Surgical History Surgical History History of appendectomy History of back surgery History of bilateral cataract extraction History of cholecystectomy History of tonsillectomy Hx of colonoscopy History of Problems with Anesthesia: No Social History Social History Household Members: None Housing: Condominium Are you a primary home care and home health aides teacher to a significant other at home: No Do you presently have visiting nurse or other home services: No Patient Tobacco Use Status: Never used Tobacco Use of substances other than those prescribed or required for medical reasons: No Have you been hit, kicked, punched, or otherwise hurt by someone within the past year? If so, by whom?: No Are you DNR?: No Advance Directives: No Advance Directives Information Provided: No Advance Directives on File: No Recently lost weight without trying: No Eating poorly because of decreased appetite: No Nutrition Risks: No Nutritional Risk Patient : No service: No Current occupational status: retired Meds Allergies Allergy/AdvReac Type Severity Reaction Status Date / Time No Known Allergies Allergy Verified 10/20/21 10:10 Home Medications Medication Instructions Recorded Confirmed Last Taken Type cholecalciferol (vitamin D3) 25 25 mcg PO DAILY 07/07/21 10/20/21 Unknown History mcg (1,000 unit) tablet (Vitamin D3) lactobacillus combination no.4 3 3,000 mmu cells PO DAILY 07/07/21 10/20/21 Unknown History billion cell capsule (Probiotic) valsartan 320 1 tab PO DAILY 07/07/21 10/20/21 07/07/21 History mg-hydrochlorothiazide 12.5 mg tablet Exam Height,Weight and Vital Signs: Height 5 ft 5 in Weight 57.153 kg Vital Signs Temp Pulse Resp BP Pulse Ox 10/27/21 09:16 97.9 F 75 18 156/70 H 98 Airway Mallampati Class: II TM Dist: >3cm Neck ROM: Full Partial: Upper Heart: RRR Lungs: CTAB Assessment and Plan Assessment Anesthesia Assessment: Anesthesia Plan Discussed Final Anesthetic Review Family History of Problems with Anesthesia: No History of Problems with Anesthesia: No NPO: Yes ASA Class: II Final Preanesthetic Review: No Changes in Pt Med Stat, Meds/Allgs Chart Reviewed, Consent Obtained/Reviewed and Anes Risks/Benef Reviewed Patient Risk: Low Procedure Risk: Low Assessment/Block/Sedation in SS: Assess/Block/Sedation-SS Anesthetic Plan Anesthetic Plan: MAC: Disposition: Standard PACU
[2021-10-27 09:04] LABS: Prothrombin Time 11.2 SEC (9.9-13.0)
[2021-10-27 09:07] LABS: Anion Gap 10 (12-20); Carbon Dioxide 28 mmol/L (22-29); Chloride 105 mmol/L (96-108); Potassium 4.3 mmol/L (3.3-5.1); Sodium 139 mmol/L (135-145)
[2021-10-27 09:16] VITALS: BP 156/70; PULSE 75; RESP 18; TEMP 36.6; O2SAT 98
[2021-10-27] MEDS: Lactated Ringers 1,000 ML 100 ML IVCONT (09:21)
[2021-10-27 10:20] VITALS: BP 129/62; PULSE 72; RESP 16; TEMP 36.2; O2SAT 98
--- NOTE | 2021-10-27 10:20 | PM.OP ---
Brief Operative Note Date of Service: 10/27/21 Pre-op diagnosis: History of perforated ulcer Post-op diagnosis: other (Scarring in duodenal bulb, Gastritis, Hiatal hernia) Procedure: EGD with biopsies Surgeon: Ronaldo Pollock Anesthesia: MAC Was an House Carpenter Helper used for this Procedure?: No Estimated blood loss (mL): 2.0 Pathology: other (A. Gastric antrum) Condition: stable Disposition: PACU
[2021-10-27 10:35] VITALS: BP 130/73; PULSE 66; RESP 18; TEMP 36.2; O2SAT 98
--- NOTE | 2021-10-27 11:09 | OP_ITS ---
SURGEON: Ronaldo Pollock MD INDICATIONS: Patient presents for evaluation of previous hospitalization for a presumed perforated gastric ulcer. Full consent was obtained from her for this, including risks of bleeding and perforation. PREOPERATIVE DIAGNOSIS: History of presumed perforated gastric ulcer. POSTOPERATIVE DIAGNOSIS: PROCEDURE PERFORMED: ESTIMATED BLOOD LOSS: COMPLICATIONS: ANESTHESIA: Monitored anesthesia care. ASSISTANTS: SPECIMENS: PROCEDURE: Esophagogastroduodenoscopy with biopsies. POSTOPERATIVE DIAGNOSES: History of presumed perforated gastric ulcer, antral chronic gastritis, hiatal hernia, scarring in duodenal bulb. DESCRIPTION OF PROCEDURE: Patient was placed in the left lateral decubitus position. The Olympus video gastroscope was passed in the posterior oropharynx and upper esophagus under direct vision. The scope was passed slowly into the distal esophagus. The gastroesophageal junction appeared at 37 cm. This area appeared normal without any sign of esophagitis nor Estes's esophagus. The scope entered into the stomach. There was a small hiatal hernia. The hiatal hernia mucosa appeared normal. The scope was advanced to pylorus and the duodenum was cannulated in the descending portion. The 2nd and 3rd portions of duodenum appeared normal. The duodenal bulb, along the anterior wall, had a linear area that appeared to be consistent with a scar, but without any active ulceration. There was some surrounding edema. Scope was withdrawn back in the stomach. The gastric antrum and body had areas of some chronic appearing erythema and edema, but no active gastritis nor ulcer disease. I did not visualize any scarring. There was good peristalsis. The scope was retroflexed visualizing the proximal stomach carefully, which appeared normal, without any signs of mass or ulceration. Scope was straightened and withdrawn back to the esophagus. The esophageal mucosa appeared normal. The scope was withdrawn from the patient. She tolerated the procedure well and was returned to the recovery area in stable condition. IMPRESSION: 1. Scarring in duodenal bulb consistent with possible previous ulcer disease. 2. Antral chronic gastritis. 3. Hiatal hernia. PLAN: The results of biopsies will be checked. If H pylori is present in the gastric biopsies, I would recommend treating that given the previous history of the presumed perforated ulcer. She is currently using omeprazole 20 mg daily and I advised her to use that long-term. She should avoid all aspirin and NSAIDs halfway as well. She has been feeling well and at this point she will see me on a p.r.n. basis. This has been discussed with her daughter. MD ARCHIE Álvarez/CALVIN / [id number] [place]
== END 2021-10-27 11:17 | disposition home or self-care (01) ==
PROVIDERS: Nurse Practitioner; PCP Nurse Practitioner Family; Visit Provider Internal Medicine
PROC: 0DJ08ZZ Inspection of Upper Intestinal Tract, Via Natural or Artificial Opening Endoscopic (ICD-10-PCS; CPT 43235; principal; 2021-10-27 09:50)
DX: K29.50 Unspecified chronic gastritis without bleeding (principal); K44.9 Diaphragmatic hernia without obstruction or gangrene; Z87.11 Personal history of peptic ulcer disease; I10 Essential (primary) hypertension; Z79.899 Other long term (current) drug therapy; Z90.49 Acquired absence of other specified parts of digestive tract
CPT/HCPCS: 43239; 36415; 80051; 85610; 88305; 88342

== ENCOUNTER 2024-09-21 11:18 | Outpatient (RCR) | payer MEDICARE, SELFPAY ==
--- NOTE | 2024-08-07 15:46 | MHC.OT.EP ---
[address] [phone] Occupational Therapy Plan of Care Patient Name: Justyna Browning Date of Evaluation: 08/07/24 Diagnosis: L DRF Pain Location: dull ache Pain Score: 6 Pain Scale Used: Numeric (0 - 10) Aggravating Factors: Alleviating Factors: bracing helps, and tylenol Assessment: Pt is an 89yr. old R hand dominant female who fell while at a BBQ when she missed a step ; she lost consciousness and was at [facility] for 4 days and then was sent to [facility] for 14 days (2 weeks) w/ OT and PT. She also had OT/PT and nursing services at home., due to decreased use of her R knee and fractured ribs. She was dx w/ a DRF and was placed in a cast while at [facility]. She presents today in a wrist cock up splint , and is concerned in regards to the lack of function of her L hand .[facility] in [place]. She has family (daughter, and sister) close by. 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 Thank you once again for your referral.
== END 2024-09-21 12:28 | disposition home or self-care (01) ==
LOC: HO.OT 11:18
PROVIDERS: PCP Nurse Practitioner Family; Visit Provider Physician Assistant
DX: S52.502A Unspecified fracture of the lower end of left radius, initial encounter for closed fracture (principal)
CPT/HCPCS: 97035; 97110; 97140; 97165; 97535

== ENCOUNTER 2024-11-01 18:19 | Emergency (ER) | payer MEDICARE, SELFPAY ==
--- NOTE | 2024-11-01 18:26 | ED_ITS ---
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 checked multiple times blood pressure been elevated in the ER blood pressure was 179/79 patient is asymptomatic as such no headache no nausea vomiting patient does have 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 and is on Celebrex Related Data Home Medications ?Medication ?Instructions ?Recorded ?Confirmed cholecalciferol (vitamin D3) 25 25 mcg PO DAILY 07/07/21 10/20/21 mcg (1,000 unit) tablet (Vitamin D3) lactobacillus combination no.4 3 3,000 mmu cells PO DAILY 07/07/21 10/20/21 billion cell capsule (Probiotic) valsartan 320 1 tab PO DAILY 07/07/21 10/20/21 mg-hydrochlorothiazide 12.5 mg tablet Previous Rx's ?Medication ?Instructions ?Recorded omeprazole 20 mg capsule,delayed 20 mg PO BID #60 caps 09/18/21 release amlodipine 2.5 mg tablet (Norvasc) 2.5 mg PO DAILY #30 tabs 11/01/24 Allergies Allergy/AdvReac Type Severity Reaction Status Date / Time No Known Allergies Allergy Verified 11/01/24 18:30 Review of Systems 2 Review of Systems: Yes all other systems are reviewed and are negative PMFSH Past Medical History Medical History (Updated 11/01/24 @ 21:32 by Cristo Vital MD) Hypokalemia Anemia Intra-abdominal abscess Osteoarthritis of both knees Sciatica High cholesterol HTN (hypertension) Surgical History History of bilateral cataract extraction Hx of colonoscopy History of back surgery History of tonsillectomy History of appendectomy History of cholecystectomy Family History Family History Mother HTN (hypertension) Father Lymphoma Sister Breast cancer Brother Diabetes mellitus Social History Social History Household Members: None Housing: Condominium Are you a primary pharmacy care coordinator to a significant other at home: No Do you presently have visiting nurse or other home services: No Comment: patient made aware fall risks when refusing bed alarm Patient Tobacco Use Status: Never used Tobacco Advance Directives: No Advance Directives Information Provided: No Do you have a plan to hurt others: No Plan service: No Current occupational status: retired Physical Exam ED Vital Signs: Vital Signs - 24 hr 11/01/24 18:27 11/01/24 19:35 11/01/24 20:43 Temperature 97.3 F 97.3 F 97.5 F Pulse Rate 101 H 100 104 H Respiratory Rate 18 18 20 Blood Pressure 239/108 H 232/106 H 217/86 H Pulse Oximetry 97 97 98 Oxygen Delivery Method Room Air Room Air Room Air 11/01/24 21:49 Temperature 97.8 F Pulse Rate 78 Respiratory Rate 20 Blood Pressure 179/84 H Pulse Oximetry 98 Oxygen Delivery Method Room Air BMI result Body Mass Index 23.2 Appearance: Alert. Oriented X3. No acute distress. Eyes: No pallor or icterus ENT: Pharynx normal. Oral Mucosa moist Neck: Normal inspection. Neck supple. CVS: Normal heart rate and rhythm. Pulses normal. Respiratory: No respiratory distress. Equal air entry bilateral, no wheezing/rales/rhonchi Abdomen: Soft and nontender. Bowel sounds are present, no mass palpable, no CVA tenderness Skin: Skin warm and dry. Normal skin color. Normal skin turgor. Extremities: No lower extremity edema. No calf tenderness Neuro: Oriented X 3. No motor deficit. No sensory deficit.No cerebellar signs , cranial nerves II-XII intact Course Course Course Narrative: RME performed by Azucena Sandoval PA-C. Patient is an 89 year old assigned female at presenting to the emergency department with high blood pressure. Patient states she has been having significantly higher blood pressures lately and she is not sure why. Detailed physical exam and review of systems are deferred to the behavior clinician. EKG, labs, imaging, and swabs ordered. Patient placed back in the waiting room pending room availability and results. Medications Administered Discontinued Medications Generic Name Dose Route Start Last Admin Trade Name Freq PRN Reason Stop Dose Admin Amlodipine Besylate 2.5 mg 11/01/24 21:31 11/01/24 21:41 Amlodipine Besylate 2.5 Mg Tablet PO 11/01/24 21:32 2.5 mg ONCE ONE Administration Protocol Medical Decision Making Medical Decision Making [facility] Narrative: Patient with elevated blood pressure on valsartan 320 mg for many years patient's labs are stable will start on amlodipine 2.5 mg daily for blood pressure control advised to follow with PCP Lab Data [facility] Lab Attestation statement: I reviewed the patient's lab results. 11/01/24 18:40 11/01/24 18:40 Labs: Lab Results 11/01/24 Range/Units 18:40 WBC 5.4 (4.8-10.8) X10*3/uL RBC 4.24 (4.20-5.50) X10*6/uL Hgb 12.8 (12.0-16.0) g/dl Hct 38.1 (37.0-47.0) % MCV 89.9 (80.0-98.0) fL MCH 30.2 (27.0-33.0) pg MCHC 33.6 (31.0-35.0) g/dl RDW 14.8 (11.0-16.0) % Plt Count 163 (160-400) X10*3/uL MPV 9.3 L (9.4-12.3) fL Immature Gran % (Auto) 0.4 (0.0-0.4) % Neut % (Auto) 70.7 (45-73) % Lymph % (Auto) 17.2 L (20-40) % Mclean % (Auto) 7.8 (2-11) % Eos % (Auto) 3.2 (0-4) % Baso % (Auto) 0.7 (0-2) % Lymph # (Auto) 0.9 L (1.2-4.9) X10*3/uL Mclean # (Auto) 0.4 (0.1-1.2) X10*3/uL Eos # (Auto) 0.2 (0.0-0.4) X10*3/uL Baso # (Auto) 0.0 (0.0-0.2) X10*3/uL Abs Immat Gran (auto) 0.02 (0.00-0.03) X10*3/uL Absolute Neuts (auto) 3.8 (2.0-8.3) x10*3/uL Absolute Nucleated RBC 0.000 (0.0-0.012) X10*3/uL Nucleated RBC % (auto) 0.0 (0.0-0.2) /100WBC Sodium 137 (135-145) mmol/L Potassium 4.1 (3.3-5.1) mmol/L Chloride 107 (96-108) mmol/L Carbon Dioxide 21 L (22-29) mmol/L Anion Gap 13 (12-20) BUN 28 H (9-16) mg/dL Creatinine 1.08 (0.5-1.4) mg/dL Estim Creat Clear Calc 29.0 Estimated GFR 48 Random Glucose 95 (60-115) mg/dL Calcium 9.8 D (8.4-10.2) mg/dL Magnesium 1.8 (1.6-2.6) mg/dL Total Bilirubin 0.6 (0.0-1.0) mg/dL AST 20 (5-31) U/L ALT 14 (0-31) U/L Alkaline Phosphatase 85 (39-117) U/L Troponin I High Sens 9.7 (<3.5-17.0) ng/L Total Protein 7.2 (6.5-8.0) g/dL Albumin 4.1 (3.5-5.0) g/dL Influenza Type A (PCR) NEGATIVE (Negative) Influenza Type B (PCR) NEGATIVE (Negative) RSV RNA Qual (PCR) NEGATIVE (Negative) SARS-CoV-2 RNA (RT-PCR) NEGATIVE (Negative) Independent Interpretation I performed an independent interpretation of an: EKG Interpretation: Normal sinus rhythm heart rate 92 beats per minute LVH no acute STT wave changes no acute ischemia Discharge Plan Discharge Clinical Impression: HTN (hypertension) Patient Disposition: Home, Self-Care Instructions: Chronic Hypertension (ED) Additional Instructions: Continue to take your valsartan Start taking amlodipine 2.5 mg in a.m. Check the blood pressure before you take the medication normal blood pressure should be less than 135/85 Decrease salt intake Follow up with your PCP Prescriptions: New amlodipine [Norvasc] 2.5 mg tablet 2.5 mg PO DAILY Qty: 30 2RF No Action omeprazole 20 mg capsule,delayed release(DR/EC) 20 mg PO BID Qty: 60 1RF valsartan-hydrochlorothiazide 320-12.5 mg tablet 1 tab PO DAILY cholecalciferol (vitamin D3) [Vitamin D3] 25 mcg (1,000 unit) Tablet 25 mcg PO DAILY Probiotic 3 billion cell Capsule 3,000 mmu cells PO DAILY Interventions: ED Discharge Assessment Last Done: 11/01/24 21:49 Discharge Date/Time: 11/01/24 21:52 Print Language: Marshallese
[2024-11-01 18:27] VITALS: BP 239/108; PULSE 101; RESP 18; TEMP 36.3; O2SAT 97; BMI 23.2
--- NOTE | 2024-11-01 18:30 | ECG_ITS ---
Test Reason : HTN Blood Pressure : */* mmHG Vent. Rate : 86 BPM Atrial Rate : 86 BPM P-R Int : 186 ms QRS Dur : 76 ms QT Int : 372 ms P-R-T Axes : 80 20 39 degrees QTcB Int : 445 ms Normal sinus rhythm Minimal voltage criteria for LVH, may be normal variant ( Sokolow-Lange ) Nonspecific ST and T wave abnormality Abnormal ECG No previous ECGs available Referred By: Azucena Sandoval Electronically Signed By: MILLIE LANDEROS
[2024-11-01 18:45] LABS: MANUAL DIFF FLAG NO
[2024-11-01 18:46] LABS: Basophils Percent Auto 0.7 % (0-2); Eosinophils Absolute Auto 0.2 X10*3/uL (0.0-0.4); Eosinophils Percent Auto 3.2 % (0-4); Hematocrit 38.1 % (37.0-47.0); Hemoglobin 12.8 g/dl (12.0-16.0); Imm Gran Abs Auto 0.02 X10*3/uL (0.00-0.03); Imm Gran Pct Auto 0.4 % (0.0-0.4); Lymphocytes Absolute Auto 0.9 X10*3/uL (1.2-4.9); Lymphocytes Percent Auto 17.2 % (20-40); Mean Corpuscular HGB Conc 33.6 g/dl (31.0-35.0); Mean Corpuscular Hemoglobin 30.2 pg (27.0-33.0); Mean Corpuscular Volume 89.9 fL (80.0-98.0); Mean Platelet Volume 9.3 fL (9.4-12.3); Monocytes Absolute Auto 0.4 X10*3/uL (0.1-1.2); Monocytes Percent Auto 7.8 % (2-11); Neutrophils Absolute Auto 3.8 x10*3/uL (2.0-8.3); Neutrophils Percent Auto 70.7 % (45-73); Platelet Count 163 X10*3/uL (160-400); Red Blood Count 4.24 X10*6/uL (4.20-5.50); Red Cell Distribution Width 14.8 % (11.0-16.0); White Blood Count 5.4 X10*3/uL (4.8-10.8)
[2024-11-01 19:00] LABS: Alanine Aminotransferase 14 U/L (0-31); Albumin Level 4.1 g/dL (3.5-5.0); Alkaline Phosphatase 85 U/L (39-117); Anion Gap 13 (12-20); Aspartate Amino Transferase 20 U/L (5-31); Bilirubin Total 0.6 mg/dL (0.0-1.0); Blood Urea Nitrogen 28 mg/dL (9-16); Calcium 9.8 mg/dL (8.4-10.2); Carbon Dioxide 21 mmol/L (22-29); Chloride 107 mmol/L (96-108); Estimated Glomerular Filt Rate 48; Glucose Random 95 mg/dL (60-115); Magnesium 1.8 mg/dL (1.6-2.6); Potassium 4.1 mmol/L (3.3-5.1); Sodium 137 mmol/L (135-145); Total Protein 7.2 g/dL (6.5-8.0)
[2024-11-01 19:07] LABS: Troponin-I High Sensitivity 9.7 ng/L (<3.5-17.0)
[2024-11-01 19:22] LABS: Influenza A PCR NEGATIVE (Negative); Influenza B PCR NEGATIVE (Negative); Resp Syncy Virus RNA Qual PCR NEGATIVE (Negative); SARS COV2 PCR INHOUSE NEGATIVE (Negative)
[2024-11-01 19:35] VITALS: BP 232/106; PULSE 100; RESP 18; TEMP 36.3; O2SAT 97
--- NOTE | 2024-11-01 20:39 | ECG_ITS ---
Test Reason : severe htn Blood Pressure : */* mmHG Vent. Rate : 92 BPM Atrial Rate : 92 BPM P-R Int : 184 ms QRS Dur : 78 ms QT Int : 364 ms P-R-T Axes : 78 28 44 degrees QTcB Int : 450 ms Normal sinus rhythm Left ventricular hypertrophy with repolarization abnormality ( Sokolow-Lange ) Abnormal ECG When compared with ECG of 01-Nov-2024 18:35, ST depression more prominent Referred By: Generic ED Physician Electronically Signed By: MILLIE LANDEROS
[2024-11-01 20:43] VITALS: BP 217/86; PULSE 104; RESP 20; TEMP 36.4; O2SAT 98
--- OUTSIDE RECORDS SUMMARY | 2024-11-01 21:06 | XMS_ITS | Data Portability ---
Author Organization CHARLI Hank Dawn [facility], [facility] Address [address] [place] [address] Care Team Providers Care Client Relations Associate Name Role Phone TYREE EMILE Primary Care Provider [phone] Assessment Encounter Date Assessment Date Assessment LastModified by Organization Details LastModified Time 06/16/2024 06/16/2024 89-year-old whfzy-cgdr-fmgoem nt female presents today for follow-up evaluation for left distal radius fracture status post closed reduction on May 30, 2024. Who is doing well with overall stable alignment. She will continue with her sugar-tong splint, will follow-up in a week. Recheck 3 views left wrist through her cast, and likely transition to short arm cast at the next visit. Also recommended aggressive elevation of the upper extremity. Not available 06/16/2024 10:41:11 06/24/2024 06/24/2024 89-year-old tkrru-gfqj-xykaob nt female presents today for follow-up evaluation for left distal radius fracture status post closed reduction on May 30, 2024. Who is doing well with overall stable alignment. She will transition to a left short arm cast and begin working on more aggressive digital range of motion and elbow range of motion. Plan to follow-up in 3 weeks time for cast off recheck 3 views left wrist and likely transition to Velcro wrist plant coupled with occupational therapy. Not available 06/24/2024 14:56:17 07/15/2024 07/15/2024 89-year-old txoav-pocj-uzpwgs nt female presents today for follow-up evaluation for left distal radius fracture status post closed reduction on May 30, 2024 He is overall doing well with stable x-rays and minimal tenderness on exam. Recommend transition out of casting into a removable Velcro wrist coupled with occupational therapy to work on range of motion and strengthening about the wrist. Follow-up 4 to 6 weeks for recheck, sooner if quired. Not available 07/15/2024 13:55:37 08/12/2024 08/12/2024 89-year-old amtpf-rdhh-asjmla nt female presents today for follow-up evaluation for left distal radius fracture status post closed reduction on May 30, 2024 overall doing fairly well with continued sense of stiffness about the wrist and digits. She may wean out of her splint during the daytime, but would recommend wearing her splint at nighttime due to her numbness and tingling. She will continue with occupational therapy. Follow-up in 6 weeks time. If she remains symptomatic with numbness and tingling may consider EMG for further evaluation. Not available 08/12/2024 14:12:44 10/20/2024 10/20/2024 89-year-old efmpv-hqua-neyuxq nt female presents today for follow-up evaluation for left distal radius fracture status post closed reduction on May 30, 2024 who is doing well from a wrist point of view. She has persistent numbness about the left hand, and I recommended EMG left upper extremity to further investigate this. 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 I recommended initially a Celebrex trial 200 mg daily x 30 days, instructed her to contact her primary care provider to ensure it is safe for her to take this. Will plan to follow-up after the EMG for further discussion of results and treatment. [email or web address] Not available 10/20/2024 09:40:23 Plan of Treatment Reminders Order Date Submit Date Provider Last Modified By Organization Details Last Modified Time Details Appointments None recorded. Lab None recorded. Referral occupationa l therapist referral - S/P LEFT DISTAL RADIUS FRACTURE EVAL AND TREAT ROM, STRENGTHENI NG 2023 024 [email or web address] Not available 07:28:03 Procedures None recorded. Surgeries None recorded. Imaging XR, wrist, 3 or more view - left wrist 3v , in splint , room 118, [facility] [address], [place], [address], 4 08:12:37 XR, wrist, 3 or more view - left wrist 3 v through splint . room 111 2023 [facility] [address], [address], [place], [address], 4 15:39:46 XR, wrist, 3 or more view - getting cast off room 105 left wrist 3v 2023 0[facility], [address], [address], [place], [address], 4 07:28:03 XR, hand, 3 or more view - RM 117 3V REECE HANDS 2024 025 [email or web address] [facility], [address], [address], [place], [address], 5 10:19:45 electromyog kayla + nerve conduction study - LUE NEUROPATHY 2024 025 [email or web address] [facility] [address], [place], [address], 5 10:19:45 Medication Orders Celebrex 200 mg capsule 2024 025 [email or web address] [id number], [address] [place], [address], 5 10:19:45 Patient TargetsNo targets recorded. Patient Instructions Encounter Date Encounter Id Patient Instructions Last Modified By Organization Details Last Modified Time 06/24/2024 [id number] application of cast, short arm cast* - short arm cast, left . transfer splint to cast , patient reduced . room 111 - wrist= neutral - length= high on forearm Not available 06/24/2024 15:42:50 07/15/2024 [id number] cast removal* - cast off then xr ROOM 105 Not available 07/15/2024 15:23:01 Reason for Referral Occupational Therapist Refer ral for Closed fracture of distal end of left radius S/P LEFT DISTAL RADIUS FRACTURE EVAL AND TREAT ROM, STRENGTHENING Referring Physician: Nitish Mead, Orthopedic Surgery, Encounter Date: 07/15/2024 Results Created Date Observation Date Name Description Value Unit Range Abnormal Flag Note LastModifiedBy Organization Detail LastModifiedTime 06/06/20 24 08/20/2023 imagi ng/di agnos tic resul t No observ ation record ed. [email or web address] Not Available 05/09 06:52:32 06/10/20 24 06/10/2024 XR, wrist , 3 or more view [email or web address] ?Encry pted=s hAaTro YD8dLq bEUv6g %2BXZw aYqtaq 0bqfl% 2Fg9IQ a4ajBk vP9nXo QUaueC m3YtLR FvZlgJ JJ8mAn HZtai3 9h7270 AC0KrY 3SNUqa vKiQtr MwF INTERFACE [facility] [address] [facility] [address] [address], [place], [address], 06/10/2024 11:03:55 06/10/20 24 06/10/2024 XR, wrist , 3 or more view [email or web address] ?Encry pted=s hAaTro YD8dLq bEUv6g %2BXZw aYqtaq 0bqfl% 2Fg9IQ a4ajBk vP9nXo QUaueC m3YtLR FvZlgJ JJ8mAn HZtai3 5f6744 AC0KrY 3SNUqa vKiQtr MwF INTERFACE [facility] [address] [facility] [address], [place], [address], 06/10/2024 11:03:57 06/16/20 24 06/16/2024 XR, wrist , 3 or more view [email or web address] ?Encry pted=s hAaTro YD8dLq bEUv6g %2BXZw aYqtaq 0bqfl% 2Fg9IQ a4ajBk vP9nXo QUaueC m3YtLR Zl [address]tai[address] 7j[address] AC0Kqa n%2BEU aukKiQ trMwF INTERFACE [facility] [address], [place], [address], 06/16/2024 10:10:49 06/16/20 24 06/16/2024 XR, wrist , 3 or more view [email or web address] ?Encry pted=s hAaTro YD8dLq bEUv6g %2BXZw aYqtaq 0bqfl% 2Fg9IQ a4ajBk vP9nXo QUaueC m3YtLR [address]ta[address] 7p4784 AC0Kqa n%2BEU aukKiQ trMwF INTERFACE [facility] [address] [facility] [address] [facility] [address], [place], [address], 06/16/2024 10:10:52 06/24/20 24 06/24/2024 XR, wrist , 3 or more view [email or web address] ?Encry pted=s hAaTro YD8dLq bEUv6g %2BXZw aYqtaq 0bqfl% 2Fg9IQ a4ajBk vP9nXo QUaueC m3YtLR Zl [address]tai[address] 0r5086 AC0Kqa niMUKK gKiQtr MwF INTERFACE [facility] [address], [place], [address], 06/24/2024 14:36:54 06/24/20 24 06/24/2024 XR, wrist , 3 or more view [email or web address] ?Encry pted=s hAaTro YD8dLq bEUv6g %2BXZw aYqtaq 0bqfl% 2Fg9IQ a4ajBk vP9nXo QUaueC m3YtLR FvZlgJ JJ8mAn HZtai3 8m1655 AC0Kqa niMUKK gKiQtr MwF INTERFACE [facility] [address], [place], [address], 06/24/2024 14:36:56 07/15/20 24 07/15/2024 XR, wrist , 3 or more view [email or web address]:/ [email or web address] ?Encry pted=s hAaTro YD8dLq bEUv6g %2BXZw aYqtaq 0bqfl% 2Fg9IQ a4ajBk vP9nXo QUaueC m3YtLR FvZlgJ JJ8mAn HZtai3 2d7063 AC0Kqa 3mCWaa kKiQtr MwF INTERFACE [facility] [address], [place], [address], 07/15/2024 13:46:11 07/15/20 24 07/15/2024 XR, wrist , 3 or more view [email or web address] ?Encry pted=s hAaTro YD8dLq bEUv6g %2BXZw aYqtaq 0bqfl% 2Fg9IQ a4ajBk vP9nXo QUaueC m3YtLR FvZlgJ JJ8mAn HZtai3 8w0947 AC0Kqa 3mCWaa kKiQtr MwF INTERFACE [facility] [address], [place], [address], 07/15/2024 13:46:13 10/20/19 25 10/20/2024 XR, hand, 3 or more view [email or web address]:/ [email or web address] ?Encry pted=s hAaTro YD8dLq bEUv6g %2BXZw aYqtaq 0bqfl% 2Fg9IQ a4ajBk vP9nXo QUaueC m3YtLR FvZlgJ JJ8mAn HZtai3 8i6736 AC0Kqb 36NWaS vKiQtr MwF INTERFACE [facility] [address], [place], [address], 10/20/2024 09:20:05 10/20/19 25 10/20/2024 XR, hand, 3 or more view [email or web address]:/ [email or web address] ?Encry pted=s Luis Enriqueo YD8dLq bEUv6g %2BXZw aYqtaq 0bqfl% 2Fg9IQ a4ajBk vP9nXo QUaueC m3YtLR FvZlgJ JJ8mAn HZtai3 7x7945 AC0Kqb 36NWaS vKiQtr MwF INTERFACE [facility] [address], [place], [address], 10/20/2024 09:20:07 Result Notes None recorded. Problems Name Problem SNOMED Code Status Onset Date Resolution Date Notes Provider Name and Address Organization Details Recorded Time No complaints 911110797 Active Status : 'A'; Not Available [facility] 4 09:11:23 Closed fracture of distal end of left radius 8780165274919 9107 Active 2023 Nitish Mead PA-C [address], [place], [address] , [facility] 4 08:15:21 Osteoarthr itis of joint of bilateral hands 5632716253292 09 Active 2024 Nitish Mead PA-C [address], [place], [address] , [facility] - [facility] 5 09:41:24 Problem Notes None recorded. Procedures Surgical History None recorded. Imaging Results Imaging Date Name Status LastModified by Organiz ation Details LastModified Time 08/20/2023 imaging/diag nostic result completed [email or web address] Information not available 06/06/2024 06:52:32 06/10/2024 XR, wrist, 3 or more view completed INTERFACE [facility] [address], [place], [address], 06/10/2024 11:03:55 06/10/2024 XR, wrist, 3 or more view completed INTERFACE [facility] [address], [place], [address], 06/10/2024 11:03:57 06/16/2024 XR, wrist, 3 or more view completed INTERFACE [facility] [address], [place], [address], 06/16/2024 10:10:49 06/16/2024 XR, wrist, 3 or more view completed INTERFACE [facility] [address], [place], [address], 06/16/2024 10:10:52 06/24/2024 XR, wrist, 3 or more view completed INTERFACE [facility] [address], [place], [address], 06/24/2024 14:36:54 06/24/2024 XR, wrist, 3 or more view completed INTERFACE [facility] [address], [place], [address], 06/24/2024 14:36:56 07/15/2024 XR, wrist, 3 or more view completed INTERFACE [facility] [address], [place], [address], 07/15/2024 13:46:11 07/15/2024 XR, wrist, 3 or more view completed INTERFACE [facility] [address], [place], [address], 07/15/2024 13:46:13 10/20/2024 XR, hand, 3 or more view completed INTERFACE [facility] [address], [place], [address], 10/20/2024 09:20:05 10/20/2024 XR, hand, 3 or more view completed INTERFACE [facility] [address], [place], [address], 10/20/2024 09:20:07 Procedure Notes None recorded. Medical Equipment None Reported. Allergies No known drug allergies Medications Name Sig Start Date Stop Date Status Note LastModified by Organization Details LastModified Time celecoxib 200 mg capsule TAKE 1 CAPSULE BY MOUTH EVERY DAY IN THE MORNING active Not Available Not Available No t Available amoxicillin 500 mg capsule TAKE 4 CAPSULES BY MOUTH 1 HOUR BEFORE APPOINTMENT active Not Available Not Available Not Available cetirizine 10 mg tablet TAKE 1 TABLET BY MOUTH EVERY DAY active Not Available Not Available No t Available atorvastatin 10 mg tablet TAKE 1 TABLET DAILY active Not Available Not Available No t Available azithromycin 250 mg tablet TAKE 2 TABLETS BY MOUTH TODAY, THEN TAKE 1 TABLET DAILY FOR 4 DAYS DIRECTED active Not Available Not Available No t Available famotidine 40 mg tablet TAKE 1 TABLET AT BEDTIME active Not Available Not Available No t Available amlodipine 2.5 mg tablet active Not Available Not Available Not Available famotidine 20 mg tablet active Not Available Not Available Not Available valsartan 320 mg tablet active Not Available Not Available Not Available gabapentin 300 mg capsule active Not Available Not Available Not Available furosemide 20 mg tablet active Not Available Not Available Not Available gabapentin 100 mg capsule TAKE 1 CAPSULE BY MOUTH THREE TIMES A DAY active Not Available Not Available Not Available fluticasone propionate 50 mcg/actuatio n nasal spray,suspen gabriela SPRAY 1 SPRAY INTO EACH NOSTRIL 2 TIMES A DAY, SHAKE WELL BEFORE USING active Not Available Not Available No t Available hydrochlorot hiazide 12.5 mg tablet active Not Available Not Available No t Available Vitals Date Recorded Body height Body mass index (BMI) Body weight Provider Name and Address Organization Details Last Updated DateTime 06/16/2024 160.02 cm 22.1 kg/m2 07234.05 g Aditi Chou [place] - [facility] 06/16/2024 10:17:42 Date Recorded Body height Body mass index (BMI) Body weight Provider Name and Address Organization Details Last Updated DateTime 06/24/2024 160.02 cm 22.1 kg/m2 45762.05 g Aditi Effie [facility] 06/24/2024 14:30:32 Date Recorded Body height Body mass index (BMI) Body weight Provider Name and Address Organization Details Last Updated DateTime 07/15/2024 160.02 cm 22.1 kg/m2 19769.05 g MARIA LUISA [facility] 07/15/2024 13:40:32 Date Recorded Body height Body mass index (BMI) Body weight Provider Name and Address Organization Details Last Updated DateTime 08/12/2024 160.02 cm 22.1 kg/m2 32305.05 g AJ CARTER [facility] 08/12/2024 13:43:52 Date Recorded Body height Body mass index (BMI) Body weight Provider Name and Address Organization Details Last Updated DateTime 10/20/2024 160.02 cm 22.1 kg/m2 90039.05 g AJ CARTER [facility] 10/20/2024 09:08:10 Social History None recorded. Functional Status None recorded. Mental Status None recorded. Family History Nothing Reported. Medical History No medical history recorded. Gynecological HistoryNo gynecological history recorded. Obstetrics History GPAL:G 0 P 0 0 0 0 Past Encounters Encounter ID Performer Location Encounter Start Date Encounter Closed Date Diagnosis/Indication Diagnosis SNOMED-CT Code Diagnosis ICD10 Code Diagnosis Note [id number] [facility] [address] [place] [address] 06/10/2024 10:02:50 07/01/2024 14:59:13 Closed fracture of distal end of left radius 8831297095 7581491 S52.502A [id number] [facility] [address] [place] [address] 06/16/2024 09:47:29 07/09/2024 08:12:37 Closed fracture of distal end of left radius 9322386076 3353123 S52.502A [id number] [facility] [address] [place] [address] 06/24/2024 14:21:55 07/15/2024 15:39:46 Closed fracture of distal end of left radius 4669416402 6626611 S52.502A [id number] Nitish Mead PA-C [facility] [address] [place] [address] 07/15/2024 13:19:57 08/11/2024 07:28:03 Closed fracture of distal end of left radius 3862927284 1728547 S52.502A The patient is ambulatory , but has weakness and/or instabilit y of their extremity which requires stabilizat ion from this semi-rigid /rigid orthosis to improve their function. Verbal and written instructio ns for their use and applicatio n of this item were given. patient was instructed that should the brace result in increased pain, decreased sensation, increased swelling or an overall worsening of their medical condition, to please contact our office immediatel y. [id number] Nitish Mead PA-C [facility] [address] [place] [address] 08/12/2024 13:31:29 09/10/2024 09:34:26 Closed fracture of distal end of left radius 7045421795 0486679 S52.502A [id number] [facility] - [facility] [address] [place] [address] 10/20/2024 09:01:43 10/20/2024 09:41:48 Closed fracture of distal end of left radius 8452555861 5228352 S52.502A Osteoarthr itis of joint of bilateral hands 0219137486 29159 M19.041 M19.042 Health Concerns Section Related Observation LastModified by Organization Detai ls LastModified Time None Recorded Concern Status LastModified by Organization Details LastModified Time None Recorded Advance Directives Directive None Recorded Payers Encounter Date Sequence Insurance Name Policy Number Policy Nazario Covered Member ID Nazario Member ID Guarantor Name 06/16/2024 2 [place] [id number] Justyna Browning [id number] Justyna Browning 06/16/2024 1 [place] Justyna V Nam [id number] Justyna V Nam 06/24/2024 2 [place] [id number] Justyna V Nam [id number] Justyna V Nam 06/24/2024 1 [place] Justyna V Nam [id number] Justyna V Nam 07/15/2024 2 [place] [id number] Justyna V Nam [id number] Justyna V Nam 07/15/2024 1 [place] Justyna V Nam [id number] Justyna V Nam 08/12/2024 2 [place] [id number] Justyna V Nam [id number] Justyna V Nam 08/12/2024 1 [place] Justyna V Nam [id number] Justyna V Nam 10/20/2024 2 [place] [id number] Justyna V Nam [id number] Justyna V Nam 10/20/2024 1 [place] Justyna V Nam [id number] Justyna V Nam Notes Date Note Type Note Provider Name and Address Organization Details Recorded Time 06/16/2024 text/html I am seeing this patient under the supervision of Dr. [place] who was available but who did not see the patient attending: Dr. Acosta complaint: Digit triage: Follow-up evaluation for left distal radius fracture status post closed reduction on May 30, 2024 HPI: 89-year-old adnuj-kxzq-onltgevi female presents today for follow-up evaluation for left distal radius fracture status post closed reduction on May 30, 2024. patient is doing well reporting minimal pain. She has not been significantly elevating the upper extremity, does note it feels a bit tight about her elbow, but no worsening pain, numbness tingling or issues with her hand. Nitish Mead PA-C [address] [place] [address] [address], [place], [address], [facility] 06/16/2024 10:41:24 06/24/2024 text/html I am seeing this patient under the supervision of Dr. Roth who was available but who did not see the patient Attending: Dr. Acosta complaint: Digit triage: Follow-up evaluation for left distal radius fracture status post closed reduction on May 30, 2024 HPI: 89-year-old dmled-sulx-wxebwyit female presents today for follow-up evaluation for left distal radius fracture status post closed reduction on May 30, 2024. She denies any significant pain about the wrist. Tolerating her splinting well Nitish Mead PA-C [address], [place], [address], [facility] 06/24/2024 14:56:31 07/15/2024 text/html I am seeing this patient under the supervision of Dr. Roth who was available but who did not see the patient Attending: Dr. Acosta complaint: Digit triage: Follow-up evaluation for left distal radius fracture status post closed reduction on May 30, 2024 HPI: 89-year-old tyapa-dass-loiefweh female presents today for follow-up evaluation for left distal radius fracture status post closed reduction on May 30, 2024. She reports pain to be improving. Notes some stiffness about digits and wrist. No significant pain after removal of her cast. Nitish Mead PA-C [address], [place], [address], [facility] 07/15/2024 13:56:00 08/12/2024 text/html I am seeing this patient under the supervision of Dr. Roth who was available but who did not see the patient Attending: Dr. Acosta complaint: Digit triage: Follow-up evaluation for left distal radius fracture status post closed reduction on May 30, 2024 HPI: 89-year-old grmug-bnsn-uvtptghs female presents today for follow-up evaluation for left distal radius fracture status post closed reduction on May 30, 2024. She does note some intermittent pain about the wrist but overall seems to be improving. Notes some continued stiffness of the wrist, and also of her digits. She does note some numbness and tingling about the tips of her digits as well. Returns today in follow-up Nitish Mead PA-C [address], [place], [address], [facility] 08/12/2024 14:12:55 10/20/2024 text/html I am seeing this patient under the supervision of Dr. [place] who was available but who did not see the patient Attending: Dr. Acosta complaint: Digit triage: Follow-up evaluation for left distal radius fracture status post closed reduction on May 30, 2024 HPI: 89-year-old bsuwy-eqpl-qihnvwxv female presents today for follow-up evaluation for left distal radius fracture status post closed reduction on May 30, 2024. She notes since finishing occupational therapy to have had some progressive stiffness and pain related to the digits of both hands. She notes improvements in her left wrist range of motion with occupational therapy. She also reports persistence of intermittent numbness tingling about the left hand as well. Nitish Mead PA-C [address], [place], [address], [facility] 10/20/2024 09:41:47 OBGyn Episode No OBEpisode recorded.
--- OUTSIDE RECORDS SUMMARY | 2024-11-01 21:06 | XMS_ITS | Patient Health Record ---
Author Organization [facility] Address [address] [place] [address] Care Team Providers Care Project Scheduler Name Role Phone Rachel Tyra LOO Primary Care Provider Ronaldo Anderson Unavailable [phone] ALLERGIES No Known Allergies REASON FOR REFERRAL No Information MEDICATIONS Medication SIG (Take, Route, Frequency, Duration) Notes Start Date End Date Status Omeprazole 20 MG 1 capsule 30 minutes before morning meal Orally BID Active Omeprazole 20 MG 1 Orally Once a day for 90 days 09/13/2021 Active Valsartan-hydroCHLOROthiaz maria esther 320-12.5 MG 1 tablet Orally Once a day for 30 day(s) Active IMMUNIZATIONS Vaccine Route Administration Date Status Comme nts Influenza Unknown 08/16/2021 Administered SOCIAL HISTORY Tobacco Use: Social History Observation Description Date Details (start date - stop date) Never Smoker NA - NA Sex Assigned At : Social History Observation Description Sex Assigned At Unknown Tobacco Use/Smoking Question Answer Notes Patient is a nonsmoker Alcohol Screen Question Answer Notes Did you have a drink containing alcohol in the p ast year? No Points 0 Interpretation Negative PROBLEMS Problem Type ICD Code Onset Dates Problem Status W/U Status Risk SNOMED Code Notes Problem Acute gastric ulcer with perforation (K25.1) Active confirmed 48723132 PLAN OF TREATMENT Future Test Test Name Order Date UPPER GI ENDOSCOPY 09/13/2021 Insurance Providers Payer Name Payer Address Payer Phone Subscriber Number Group Number Insured Name Patient Relationship to Insured Coverage Start Date Coverage End Date MEDICARE OF [place] [address] [place] [address] [phone] [id number] STEPHEN MARTINI Self - patient is the insured [employer] CLAIMS [address] [place] [address] [phone] [id number] STEPHEN MARTINI Self - patient is the insured MEDICAL (GENERAL) HISTORY Medical History History ICD Code HTN Denies NH,DM,CVA,Lung disease,renal dise ase Hospitalization in July 08 for a perforation of a presumed gastric ulcer. This was treated medically and did not require any surgery or endoscopy at that time. However, she did develop an intra-abdominal abscess and had a CT-guided drainage procedure successfully. H. pylori stool antigen was negative. Surgical History Surgery Date(Month/Year) Cholecystectomy Spinal stenosis Appendectomy Cataract surgery
[2024-11-01] MEDS: amLODIPine Besylate 2.5 MG TABLET PO (21:41)
[2024-11-01 21:49] VITALS: BP 179/84; PULSE 78; RESP 20; TEMP 36.6; O2SAT 98
--- NOTE | 2024-11-01 21:50 | PC.NURSE ---
awake/alert x4. speech clear, no distress, gait steady. no N/V/cp. understands dc instructions.
== END 2024-11-01 21:52 | disposition home or self-care (01) ==
PROVIDERS: Physician Assistant Medical; Emergency Provider Internal Medicine; PCP Nurse Practitioner Family
DX: I10 Essential (primary) hypertension (principal); R94.31 Abnormal electrocardiogram [ECG] [EKG]; Z79.899 Other long term (current) drug therapy; Z03.818 Encounter for observation for suspected exposure to other biological agents ruled out
CPT/HCPCS: 0241U; 36415; 80053; 83735; 84484; 85025; 93005; 99284; 99285

== ENCOUNTER → 2024-11-01 18:30 | Outpatient (BNV) | payer MEDICARE, SELFPAY | PROVIDERS: Emergency Provider Internal Medicine; PCP Nurse Practitioner Family; Visit Provider Internal Medicine | DX: R94.31 Abnormal electrocardiogram [ECG] [EKG] (principal) | CPT/HCPCS: 93010 ==